=== PATIENT | male | born 1935 | race Caucasian/White ===

== ENCOUNTER 2017-07-01 05:54 | Inpatient (IN) | payer OTHER, BC ==
[2017-06-23 09:52] VITALS: BMI 35.3
[2017-07-01] MEDS ORDERED: CELECOXIB 200 MG CAPSULE PO ONE (06:30)
[2017-07-01] MEDS ORDERED: GABAPENTIN 300 MG CAPSULE (FP) PO ONE (06:30)
[2017-07-01] MEDS ORDERED: TRANEXAMIC ACID 1000 MG/10 ML VIAL IVPUSH ONE (06:30)
[2017-07-01] MEDS ORDERED: CEFAZOLIN 2 GM/D5W 2 GM/50 ML ML IVPB ONE (06:30)
[2017-07-01] MEDS ORDERED: CELECOXIB 200 MG CAPSULE ONE (06:43)
[2017-07-01] MEDS ORDERED: GABAPENTIN 300 MG CAPSULE (FP) ONE (06:43)
[2017-07-01] MEDS ORDERED: ceFAZolin SODIUM 1 GM VIAL ONE ×2 (07:00→08:17)
[2017-07-01] MEDS ORDERED: VANCOMYCIN 1,000 MG VIAL (RESTRICTED TO ID ONLY) ONE (07:00)
[2017-07-01] MEDS ORDERED: BUPIVACAINE LIPOSOME/PF (EXPAREL) 266 MG/20 ML VIAL ONE (07:44)
[2017-07-01] MEDS ORDERED: MIDAZOLAM HCL 2 MG/2 ML SINGLE DOSE VIAL ONE (07:44)
[2017-07-01] MEDS ORDERED: BUPIVACAINE HCL/PF (5 MG/ML) 30 ML VIAL IJ ONE (07:44)
--- NOTE | 2017-07-01 07:49 | HP ---
Satellite [facility] - Chief Complaint Chief Complaint: right knee pain - Past Medical History Allergies/Adverse Reactions: Allergies Allergy/AdvReac Type Severity Reaction Status Date / Time No Known Allergies Allergy Verified 07/01/17 06:31 Cardiovascular: Yes: Other (H/O cardiac catheterisation at [facility] 4 years ago.) Pulmonary: Yes: Asthma (Known to have irregular heart for a long time, but not treated.) Gastrointestinal: Yes: GERD, Peptic Ulcer Disease Endocrine: Yes: Diabetes Mellitus - Current Medications Current Medications: Home Medications Medication Instructions Recorded Losartan Potassium [Cozaar -] 25 mg PO DAILY #30 tablet 06/02/14 Furosemide [Lasix -] 40 mg PO DAILY #30 tablet 06/09/14 Acetaminophen/Diphenhydramine 2 tab PO HS 06/23/17 [Tylenol Pm Ex-Strength Caplet] Ferrous Sulfate [Iron] 325 mg PO DAILY 06/23/17 Omeprazole 40 mg PO HS 06/23/17 Rivaroxaban [Xarelto -] 15 mg PO DAILY 06/23/17 Satellite Physical Exam - Physical Examination Vital Signs: Vital Signs Period Temp Pulse Resp BP Sys/Will Pulse Ox Last 24 Hr 98.4 F 90 18 130/92 General Appearance: Well Nourished, Well Developed, Alert & Oriented x3 ENT: Clear Lung: Normal air movement Heart: Regular rate & rhythm Extremities: Other (right knee- + swelling, + ttp, decr rom, nvi xrays show grade 4 tricompartmental djd) Neurological: Intact, Alert, Oriented Satellite Impression/Plan - Impression/Plan Impression: right knee djd Operative Procedure: right julia tkr Date to be Performed: 07/01/17
[2017-07-01] MEDS ORDERED: PROPOFOL 20 ML ONE ×2 (08:01)
[2017-07-01] MEDS ORDERED: SUCCINYLCHOLINE CHLORIDE 200 MG/10 ML VIAL ONE (08:02)
[2017-07-01] MEDS ORDERED: DEXAMETHASONE SOD PHOSPHATE 4 MG/1 ML VIAL ONE (08:17)
[2017-07-01] MEDS ORDERED: ONDANSETRON 4 MG/2 ML VIAL ONE (08:17)
[2017-07-01] MEDS ORDERED: TRANEXAMIC ACID 1000 MG/10 ML VIAL ONE ×2 (08:17→09:42)
[2017-07-01] MEDS ORDERED: VANCOMYCIN 1,000 MG VIAL (RESTRICTED TO ID ONLY) IVPB ONE (09:40)
[2017-07-01] MEDS ORDERED: ONDANSETRON 4 MG/2 ML VIAL IVPUSH PRN (10:05)
[2017-07-01] MEDS ORDERED: MAG HYDROX/AL HYDROX/SIMETH 30 ML UNIT-DOSE CUP PO PRN (10:05)
[2017-07-01] MEDS ORDERED: MAGNESIUM HYDROX 2400MG/30ML ORAL SUSPENSION 30 ML CUP PO PRN (10:05)
--- NOTE | 2017-07-01 10:08 | OP ---
Operative Note - Note: Operative Date: 07/01/17 (esme) Pre-Operative Diagnosis: right knee djd Operation: right julia tkr Post-Operative Diagnosis: Same as Pre-op Surgeon: Isaac Sebastian Mds Manager: Gasper Gallegos Anesthesiologist/PRESS TENDER: Louise Olsen Anesthesia: Spinal, Local Specimens Removed: bone fragments Estimated Blood Loss (mls): 150 Operative Report Dictated: Yes
[2017-07-01] MEDS ORDERED: LACTATED RINGERS SOLUTION 1,000 ML IV SCH ×2 (10:15→12:41)
[2017-07-01] MEDS: ACETAMINOPHEN 325 MG TABLET (FP) PO SCH ×3 (11:15→23:37)
--- NOTE | 2017-07-01 11:21 | SPEC ---
DATE OF OPERATION: 07/01/2017 PREOPERATIVE DIAGNOSIS: Degenerative joint disease, right knee. POSTOPERATIVE DIAGNOSIS: Degenerative joint disease, right knee. PROCEDURE: Right total knee replacement with robotic-assisted navigation (MAKOplasty). SURGICAL ATTENDING: Isaac Sebastian MD STUDENT SERVICES VICE PRESIDENT: MARTIN Schafer ANESTHESIA: Regional and spinal. CLOSURE: A Triathlon Press-Fit knee system with a 7 PS femur, 8 tibia, 38 patella, and an 11 polyethylene; No. 1 Vicryl, fascia; 0 and 2-0 for subcutaneous; and 3-0 Monocryl subcuticular with skin glue for skin; 4-0 undyed Vicryl for pin sites. ESTIMATED BLOOD LOSS: Less than 100 mL. COMPLICATIONS: None. CONDITION: To recovery room in stable condition. DESCRIPTION OF OPERATIVE PROCEDURE: Patient was taken to the operating room on July 01, 2017. Regional and spinal anesthesia was administered by the anesthesiologist. IV Kefzol was administered prophylactically prior to the case as well as TXA. The right lower extremity was prepped and draped in the usual sterile fashion. The midline 10- to 12-cm longitudinal incision was made. Hemostasis was achieved with Bovie cautery. Sharp dissection was carried down to the extensor mechanism which was perform the procedure. Medial parapatellar arthrotomy was then performed, leaving a cuff of tissue for later closure. The patella was inverted and the knee was flexed up. The fat pad was excised. Subperiosteal dissection was done on the anteromedial proximal tibia until the knee was able to be brought forward. This was facilitated by taking the ACL, PCL and medial and lateral menisci. Checkpoints were placed in both the femur and in the tibia. Two parallel threaded pins were drilled superior to the knee joint through the already made incision from anterior to posterior just going through the anterior cortex but just engaging but not going through the posterior cortex. Two threaded pins were drilled through 2 small stab incisions in parallel fashion 1 handbreadth below the tibial tubercle through the anterior cortex of the tibia and engaging but not going through the posterior cortex. Both sets of pins were attached to navigation arrays for the MICHAEL system. The knee was then registered with the navigation system with center of rotation of the hip, medial and lateral malleoli and multiple sites both on the tibia and on the femur. Confirmation of excellent registration was confirmed by "popping the bubbles." At this time, the knee was thoroughly inspected to remove all osteophytes around the knee. The knee was then tensioned in varus/valgus at both full extension and at 90 degrees of flexion to ascertain our gaps. The virtual position of the components was optimized to ensure equal gaps throughout the range of motion. Once this was performed, the robot was brought into the field, was registered. The bone was cut as per the specifications on both the tibia and on the femur. The box cuts were then made as well. Excellent trial stability was obtained on the femur. The tibial baseplate was allowed to "find itself" and then was clipped into place. Confirmation of excellent external rotation of that component was confirmed by the navigation device as well.The patella was calibered for thickness and cut at the appropriate level. The appropriate lollipop was used to drill 3 holes in the patella and a trial asymmetric patellar button was applied. The knee was taken through a range of motion and found to have excellent stability from full extension to full flexion with excellent tracking of the patella. The trial components were then removed. The lug holes were drilled in the femur. The cementless keel was punched in the tibia. The real Press-Fit components were malleted into place, first with the tibia and then with the femur, and then the patella was crimped into place as well. The real polyethylene liner was then clipped into place. Range of motion, stability and tracking were as described earlier. The knee was thoroughly irrigated with copious amounts of irrigation. Vancomycin powder was placed inside the joint. The medial parapatellar arthrotomy was then closed using No. 1 Vicryl interrupted suture. Post closure of the arthrotomy, the knee was taken through a range of motion and found to have no undue tension on the repair. The subcutaneous was then pulse antibiotic irrigated, closed with 0 and 2-0 Vicryl and 3-0 Monocryl subcuticular with skin glue for the skin. Prior to closure, the checkpoints were removed as were the threaded pins. The tibial pin sites were closed with 4-0 undyed Vicryl. A sterile pressure Aquacel dressing was applied. No tourniquet was used during the case. The total blood loss was approximately 100 mL. No complication. Patient was transferred to recovery in stable condition. Aftab [id number]
[2017-07-01] MEDS: oxyCODONE HCL 5 MG TABLET PO PRN ×2 (14:00→16:57)
[2017-07-01] MEDS: CEFAZOLIN 2 GM/D5W 2 GM/50 ML ML IVPB SCH ×2 (16:00→23:37)
[2017-07-01] MEDS ORDERED: PATIENT'S OWN MEDICATION (NON-FORMULARY) (Omeprazole [Omeprazole] 40 MG) PO SCH (22:00)
[2017-07-01] MEDS: SENNOSIDES/DOCUSATE COMBO (SENNA PLUS) TABLET (UD) PO SCH (22:14)
[2017-07-01] MEDS: PANTOPRAZOLE 40 MG TABLET (FP) PO SCH (22:14)
[2017-07-02] MEDS: oxyCODONE HCL 5 MG TABLET PO PRN ×5 (02:24→23:46)
[2017-07-02] MEDS: ACETAMINOPHEN 325 MG TABLET (FP) PO SCH ×4 (06:12→23:46)
[2017-07-02 08:01] LABS: HEMATOCRIT 31.7 % (35.4-49); HEMOGLOBIN 10.9 GM/dl (11.7-16.9); MCH 32.9 pg (25.7-33.7); MCHC 34.4 g/dl (32.0-35.9); MEAN CELL VOLUME 95.6 fl (80-96); MEAN PLT VOLUME 9.1 fl (7.5-11.1); PLATELET COUNT 229 K/MM3 (134-434); RBC 3.32 M/mm3 (4.00-5.60); RDW 12.8 % (11.9-15.9); WHITE BLOOD COUNT 8.5 K/mm3 (4.0-10.8)
[2017-07-02] MEDS: MULTIVITAMINS (DAILY MVI) TABLET (FP) PO SCH (09:26)
[2017-07-02] MEDS: FUROSEMIDE 40 MG TABLET (FP) PO SCH (09:26)
[2017-07-02] MEDS: LOSARTAN POTASSIUM 25 MG TABLET PO SCH (09:27)
[2017-07-02] MEDS: FERROUS SO4 325 MG TABLET (FP) PO SCH (09:27)
[2017-07-02] MEDS: SENNOSIDES/DOCUSATE COMBO (SENNA PLUS) TABLET (UD) PO SCH ×2 (09:27→21:06)
[2017-07-02] MEDS: RIVAROXABAN 15 MG TABLET PO SCH (09:27)
[2017-07-02] MEDS: PANTOPRAZOLE 40 MG TABLET (FP) PO SCH (21:06)
[2017-07-03] MEDS: ACETAMINOPHEN 325 MG TABLET (FP) PO SCH ×3 (06:28→18:39)
[2017-07-03] MEDS: oxyCODONE HCL 5 MG TABLET PO PRN ×2 (06:29→18:39)
[2017-07-03 09:09] LABS: HEMATOCRIT 32.8 % (35.4-49); HEMOGLOBIN 10.9 GM/dl (11.7-16.9); MCH 31.5 pg (25.7-33.7); MCHC 33.3 g/dl (32.0-35.9); MEAN CELL VOLUME 94.5 fl (80-96); MEAN PLT VOLUME 9.7 fl (7.5-11.1); PLATELET COUNT 245 K/MM3 (134-434); RBC 3.47 M/mm3 (4.00-5.60); WHITE BLOOD COUNT 11.6 K/mm3 (4.0-10.8)
[2017-07-03] MEDS: MULTIVITAMINS (DAILY MVI) TABLET (FP) PO SCH (09:37)
[2017-07-03] MEDS: FERROUS SO4 325 MG TABLET (FP) PO SCH (09:37)
[2017-07-03] MEDS: SENNOSIDES/DOCUSATE COMBO (SENNA PLUS) TABLET (UD) PO SCH ×2 (09:37→21:22)
[2017-07-03] MEDS: FUROSEMIDE 40 MG TABLET (FP) PO SCH (09:37)
[2017-07-03] MEDS: LOSARTAN POTASSIUM 25 MG TABLET PO SCH (09:37)
[2017-07-03] MEDS: RIVAROXABAN 15 MG TABLET PO SCH (09:37)
[2017-07-03] MEDS ORDERED: INVOKANA 100 MG PO SCH (10:00)
--- NOTE | 2017-07-03 10:23 | PN ---
Progress Note (short form) - Note Progress Note: AVSS COMFORTABLE BANDAGES DRY AND INTACT CALF SOFT AND NT NVI ROM 060 + STRAIGHT LEG RAISE ABILITY IMP: DOING WELL PLAN: PT, TRANSFER TO SNF TOMORROW
[2017-07-03] MEDS: PANTOPRAZOLE 40 MG TABLET (FP) PO SCH (21:22)
[2017-07-04] MEDS: ACETAMINOPHEN 325 MG TABLET (FP) PO SCH ×2 (00:21→06:02)
[2017-07-04] MEDS: oxyCODONE HCL 5 MG TABLET PO PRN (06:02)
[2017-07-04 06:23] VITALS: BP 124/44; PULSE 91; TEMP 99.3
--- NOTE | 2017-07-04 09:09 | PN ---
Progress Note (short form) - Note Progress Note: Ortho Pt see and examined s/p right julia tkr pod #3 Selected Entries 07/04/17 06:21 Temperature 99.3 F Pulse Rate 91 H Respiratory 18 Rate Blood Pressure 124/44 Laboratory Tests 07/03/17 06:00 WBC 11.6 H D Hgb 10.9 L Hct 32.8 L Plt Count 245 dressing c/d/i, calf soft, nt rom 0-60, nvi a/p PT dvt ppx pain control d/c to rehab today f/u in 1-2 weeks
--- NOTE | 2017-07-04 09:10 | DS ---
Physical Examination Vital Signs: Vital Signs Temperature 99.3 F 07/04/17 06:21 Pulse Rate 91 H 07/04/17 06:21 Respiratory Rate 18 07/04/17 06:21 Blood Pressure 124/44 07/04/17 06:21 O2 Sat by Pulse Oximetry (%) 97 07/04/17 06:21 Labs: CBC, BMP 07/03/17 06:00 Discharge Summary Reason For Visit: OSTEOARTHRITIS Procedures: Principal: s/p right tkr Hospital Course: admitted for elective right julia tkr, uneventful post-op, stable for d/c Condition: Good - Instructions Diet, Activity, Other Instructions: Post-op Instructions-Total Knee Replacement Call the office for a follow-up appointment in 1 week - [phone] Aspirin 325mg daily for 6 weeks. Pain medication was sent into your pharmacy. Apply Graduated Compression Stockings (TEDs) to both lower extremities- remove daily for hygiene ONLY Apply Sequential Compression Device (SCDs) to both Lower extremities remove for PT and hygiene ONLY Apply cold packs to affected area for 15 minutes every 2 hours. Physical Therapist will come to your home for the first 5 days. You will be set up with outpatient PT at your first post-operative visit. Patient may ambulate as tolerated-encourage self care (at least every 2-3 hours while awake) with walker or cane Maintain Aquacel (waterproof) dressing to operative wound (will be removed by surgeon at first office visit) Shower with Aquacel dressing in place-if Aquacel integrity compromised, remove and apply dry sterile dressing and notify Orthopedist. DO NOT SHOWER unless Orthopedists approves without Aquacel dressing CONTACT THE OFFICE FOR ANY CHANGE IN YOUR CONDITION (for example-fever greater than 102 degrees, excessive bleeding from operative site, purulent drainage, severe swelling or pain) GO TO THE EMERGENCY ROOM IF THERE IS A MEDICAL EMERGENCY Knee Precautions: * Keep a rolled towel under affected heel while in bed or chair (to keep knee in extension) * Keep affected leg elevated except during mealtimes * DO NOT PLACE PILLOW UNDER AFFECTED KNEE * If you have any questions, please do not hesitate to call the office - . Referrals: Isaac Sebastian MD [Staff Physician] - Disposition: [facility] - Home Medications Comprehensive Discharge Medication List: Ambulatory Orders Losartan Potassium [Cozaar -] 25 mg PO DAILY #30 tablet 06/02/14 Furosemide [Lasix -] 40 mg PO DAILY #30 tablet 06/09/14 Acetaminophen/Diphenhydramine [Tylenol Pm Ex-Strength Caplet] 2 tab PO HS Ferrous Sulfate [Iron] 325 mg PO DAILY 06/23/17 Omeprazole 40 mg PO HS 06/23/17 Rivaroxaban [Xarelto -] 15 mg PO DAILY 06/23/17 Oxycodone HCl/Acetaminophen [Percocet 5-325 mg Tablet] 1 - 2 tab PO Q6H #50 tab MDD 8 07/01/17
[2017-07-04] MEDS: LOSARTAN POTASSIUM 25 MG TABLET PO SCH (09:28)
[2017-07-04] MEDS: FERROUS SO4 325 MG TABLET (FP) PO SCH (09:28)
[2017-07-04] MEDS: FUROSEMIDE 40 MG TABLET (FP) PO SCH (09:29)
[2017-07-04] MEDS: RIVAROXABAN 15 MG TABLET PO SCH (09:29)
[2017-07-04] MEDS: SENNOSIDES/DOCUSATE COMBO (SENNA PLUS) TABLET (UD) PO SCH (09:29)
[2017-07-04] MEDS: MULTIVITAMINS (DAILY MVI) TABLET (FP) PO SCH (09:29)
--- NOTE | 2017-07-05 15:34 | PATH ---
Surgical Pathology Report Patient Name: DARIELA HOWE Med. Rec. #: [id number] /Age/Gender: 1935 (Age: 81) / M Account: [id number] Location: [facility] Taken: 07/01/2017 Received: 07/01/2017 Reported: 07/05/2017 Physicians: Isaac Sebastian M.D. Specimen(s) Received RIGHT KNEE BONES Clinical History Osteoarthritis right knee Final Diagnosis BONE AND SOFT TISSUE, RIGHT KNEE, REPLACEMENT: DEGENERATIVE JOINT DISEASE. Electronically Signed Adrian Pinto M.D. Gross Description Received in formalin labeled "right knee bones," is a 15.5 x 11.5 x 2.3 cm aggregate of multiple irregular portions of bone and soft tissue. The tibial plateau measures 9.0 x 6.5 x 2.0 cm. There multiple areas of eburnation present, measuring up to 2.7 cm in greatest dimension. The remaining articular surfaces are contreras-yellow and diffusely granular. The underlying trabecular bone is yellow and hard. Civil Lawyer sections are submitted in one cassette, following decalcification. 07/04/2017 saudi07/04/2017
== END 2017-07-04 13:50 | DRG 470 ==
LOC: FM/S 05:54
PROVIDERS: ADMIT Orthopaedic Surgery; ATTEND Orthopaedic Surgery
PROC: 8E0Y0CZ Robotic Assisted Procedure of Lower Extremity, Open Approach (ICD-10-PCS; 2017-07-01)
PROC: 0SRC0JA Replacement of Right Knee Joint with Synthetic Substitute, Uncemented, Open Approach (ICD-10-PCS; principal; 2017-07-01 08:00)
DX: M17.11 Unilateral primary osteoarthritis, right knee (principal); J45.909 Unspecified asthma, uncomplicated; K21.9 Gastro-esophageal reflux disease without esophagitis; Z87.11 Personal history of peptic ulcer disease; E11.9 Type 2 diabetes mellitus without complications
CPT/HCPCS: 36415; 73560-TC-RT-FY; 82962; 85027; 88304-TC; 88311-TC; 94010; 94760; 97116-GP; 97162-GP

== ENCOUNTER 2018-08-25 22:29 | Inpatient (IN) | payer OTHER, BC ==
--- NOTE | 2018-08-25 23:14 | PDOC ---
History of Present Illness - General Chief Complaint: Shortness of Breath Stated Complaint: RT ARM NUMBNESS Time Seen by Provider: 08/25/18 22:46 History Source: Patient Exam Limitations: No Limitations - History of Present Illness Initial Comments: 08/25/18 23:14 HPI 82 YOM with h/o Afib on Eliquis, HTN, DM2, GERD, osteoarthritis presenting with right arm burning pain x 1.5 hours, with tingling sensation, after eating [employer] tonight. Denies fall or trauma, but was using his RUE for his cane to assist with ambulation. Denies exacerbation with movement, not associated with cp/sob/reyes/dizziness/syncope. 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 Denies fever, chills, chest pain, SOB, palpitation, syncope, headache, dizziness , weakness, N, V, D, abdominal pain, bladder and bowel problems, leg swelling, leg pain No new changes in medications. No suspicious food intake, but did eat [employer] hamburger tonight. Allergies: None Past Medical History: as documented in EMR/HPI Social history: Lives with family. No tobacco, ETOH or drug use. Surgical history: cholecystectomy, TKA Meds: as documented in EMR PMD: Dr Benitez Past History - Past Medical History Allergies/Adverse Reactions: Allergies Allergy/AdvReac Type Severity Reaction Status Date / Time No Known Allergies Allergy Verified 08/25/18 22:43 Home Medications: Ambulatory Orders Losartan Potassium [Cozaar -] 25 mg PO DAILY #30 tablet 06/02/14 Furosemide [Lasix -] 40 mg PO DAILY #30 tablet 06/09/14 Acetaminophen/Diphenhydramine [Tylenol Pm Ex-Strength Caplet] 2 tab PO HS Ferrous Sulfate [Iron] 325 mg PO DAILY 06/23/17 Omeprazole 40 mg PO HS 06/23/17 Rivaroxaban [Xarelto] 15 mg PO DAILY 06/23/17 Oxycodone HCl/Acetaminophen [Percocet 5-325 mg Tablet] 1 - 2 tab PO Q6H #50 tab MDD 8 07/01/17 Anemia: No Asthma: No Cancer: No Cardiac Disorders: Yes (A- FIB- ON XARELTO TOLD TO STOP 06/27/17) CVA: No COPD: No CHF: No Dementia: No Diabetes: Yes GI Disorders: Yes (REFLUX) Disorders: No HTN: Yes Hypercholesterolemia: No Liver Disease: No Seizures: No Thyroid Disease: No - Surgical History Abdominal Surgery: No Appendectomy: No Cardiac Surgery: Yes (CARDIC CATH-2013- NEGATIVE) Cholecystectomy: Yes (LAP CHOLEY- 2015) Lung Surgery: No Neurologic Surgery: No Orthopedic Surgery: Yes (FX REPAIR LEFT LEG- 1984) - Suicide/Smoking/Psychosocial Hx Smoking History: Never smoked Have you smoked in the past 12 months: No If you are a former smoker, when did you quit?: 1992 Hx Alcohol Use: No Drug/Substance Use Hx: No Substance Use Type: None Hx Substance Use Treatment: No Review of Systems - Review of Systems Able to Perform ROS?: Yes Comments:: 08/25/18 23:14 Review of systems Constitutional: no fevers or chills. HEENT: no headache or dizziness. No visual/hearing disturbances. No blindness or blurry vision. CVS: no cp or syncope. No palpitations. Resp: no sob. No cough. Gastrointestinal: no abdominal pain, nausea or vomiting. Genitourinary: no urinary sx, hematuria. MUSCULOSKELETAL: No joint pain and swelling. No neck or back pain. SKIN: no redness or skin changes, no discharge, no rash. No wounds. Hematologic: no easy bruising/bleeding. NEUROLOGIC: No headache, dizziness, LOC or altered mental status. +arm weakness and tingling. Allergic/Immunologic: no allergies All other systems reviewed and negative, or as documented in HPI. *Physical Exam - Vital Signs Last Vital Signs Temp Pulse Resp BP Pulse Ox 98.2 F 63 20 181/72 H 94 L 08/25/18 22:35 08/25/18 22:35 08/25/18 22:35 08/25/18 22:35 08/25/18 22:35 - Physical Exam Comments: 08/25/18 23:14 Physical exam: General: Well appearing, awake and alert, NAD. HEENT: NCAT, PERRL, EOMI, clear conjunctiva, anicteric, moist mucus membranes, clear oropharynx, no oral lesions.. Neck: neck supple, FROM Resp: CTAB, normal and even respirations, no respiratory distress CVS: RRR, no murmurs, 2+ peripheral pulses throughout, +peripheral edema at sock line Abdomen: soft, NTND, no peritoneal signs. Back: nontender, normal inspection and ROM MSK: CARSON x4, ROM intact. No clubbing or cyanosis. normal bulk and tone. shoulder abduction/adduction/flexion/extension and prox strength 5/5 actively against resistance. 5/5 shoulder shrug strength. deltoid sensation intact; sensation grossly intact in median/radial/ulnar distribution. distal keg header strength 5/5. 2+ radialis pulses bilaterally and symmetric. Neg Phalens and Tinels testing, no carpal tunnel tenderness elicited. Extrem: no calf tenderness. Neuro: alert, no focal neuro deficits. Skin: warm and well perfused, cap refill <2 sec, normal color Heart Score/ECG Review #1 ECG reviewed & interpreted by me at: 22:30 Compared to previous ECG there are: No significant change 08/25/18 23:17 EKG atrial fibrillation at 54 bpm , wide QRS, incomplete RBBB, ST and T wave segments and morphology normal. Nonspecific T wave abnormalities with WTI in I/ AVL - similar to prior EKG ED Treatment Course - LABORATORY CBC & Chemistry Diagram: 08/25/18 23:28 08/25/18 23:28 - RADIOLOGY Radiology Studies Ordered: Category Date Time Status CHEST X-RAY PORTABLE* [RAD] Stat Radiology 08/25/18 22:46 Ordered Medical Decision Making - Medical Decision Making 08/25/18 23:14 See HPI for details. Prior notes reviewed, including admissions, discharges and consultations. Vital signs reviewed, wnl. mildly hypertensive, but also in pain. SpO2 normalized, no respiratory distress DDX neuropathy, carpel tunnel syndrome, ACS, arrhythmia, NSTEMI, electrolyte/ metabolic derangements. laboratory results and imaging reviewed, basic labs and lytes wnl, Cr elevated to 1.7 compared to prior. CXR_clear lungs, normal silhouette Cardiac panel_trop elevated, 0.17. chucky with NSTEMI. BNP indeterminate/ unremarkable EKG atrial fibrillation at 54 bpm , wide QRS, incomplete RBBB, ST and T wave segments and morphology normal. Nonspecific T wave abnormalities with WTI in I/ AVL - similar to prior EKG ED course -interventions: ibuprofen/initial neuropathic pain, ASA for NSTEMI - routine cards cs placed for Dr Figueredo per request Admit to Dr Gerard service for NSTEMI, atypical cp symptoms given +trop/baseline abnormal EKG. Discussed results and management plan with pt and family member at bedside, agree with impression, treatment indications, recommendations and plan. 08/26/18 01:15 *DC/Admit/Observation/Transfer Diagnosis at time of Disposition: NSTEMI (non-ST elevated myocardial infarction), Atypical chest pain - Discharge Dispostion Condition at time of disposition: Guarded Decision to Admit order: Yes Decision to Admit order Date/Time: 08/26/18 01:11 Decision to Admit Order Category Date Time Status Decision to Admit to Hospital Routine Admission 08/26/18 01:03 Active - Referrals - Patient Instructions - Post Discharge Activity
[2018-08-25] MEDS ORDERED: IBUPROFEN 600 MG TABLET (FP) PO ONE ×2 (23:15→23:22)
[2018-08-25 23:53] LABS: BASO % 0.8 % (0-2.0); EOS % 2.1 % (0-4.5); HEMATOCRIT 37.7 % (35.4-49); HEMOGLOBIN 12.1 GM/dL (11.7-16.9); MCH 30.9 pg (25.7-33.7); MEAN CELL VOLUME 96.5 fl (80-96); MEAN PLT VOLUME 9.9 fl (7.5-11.1); MONO % 7.8 % (3.8-10.2); NEUT % 77.3 % (42.8-82.8); RBC 3.91 M/mm3 (4.00-5.60); RDW 15.1 % (11.9-15.9); WHITE BLOOD COUNT 4.7 K/mm3 (4.0-10.0)
[2018-08-26 00:05] LABS: INR 1.13 (0.83-1.09); PROTHROMBIN TIME (PATIENT) 13.4 SEC (9.7-13.0)
[2018-08-26 00:08] LABS: ACTIVATED PTT 33.7 SECONDS (25.2-36.5)
[2018-08-26 00:18] LABS: ALBUMIN 3.8 g/dl (3.4-5.0); BILIRUBIN,TOTAL 0.4 mg/dL (0.2-1); BLOOD UREA NITROGEN 32.9 mg/dL (7-18); CALCIUM 8.8 mg/dL (8.5-10.1); CREATININE 1.7 mg/dL (0.55-1.3); MAGNESIUM 3.1 mg/dL (1.8-2.4); N-TERMINAL BNP 966.4 pg/ml (5-450); POTASSIUM 5.3 mmol/L (3.5-5.1); TOT PROT 7.4 g/dl (6.4-8.2)
[2018-08-26] MEDS ORDERED: ASPIRIN 81 MG CHEWABLE TABLETS PO ONE (01:03)
[2018-08-26] MEDS ORDERED: ASPIRIN 81 MG CHEWABLE TABLETS ONE (01:14)
[2018-08-26 01:19] LABS: PLATELET COUNT 164 K/MM3 (134-434); PLATELET ESTIMATE ADEQUATE
[2018-08-26 06:37] VITALS: BMI 33.5
[2018-08-26 07:42] LABS: BASO % 1.2 % (0-2.0); EOS % 0.5 % (0-4.5); HEMATOCRIT 38.5 % (35.4-49); HEMOGLOBIN 12.5 GM/dL (11.7-16.9); LYMPH % 13.6 % (8-40); MCH 30.8 pg (25.7-33.7); MCHC 32.4 g/dl (32.0-35.9); MEAN CELL VOLUME 95.3 fl (80-96); MEAN PLT VOLUME 9.8 fl (7.5-11.1); MONO % 7.3 % (3.8-10.2); NEUT % 77.4 % (42.8-82.8); PLATELET COUNT 179 K/MM3 (134-434); RBC 4.04 M/mm3 (4.00-5.60); RDW 14.5 % (11.9-15.9); WHITE BLOOD COUNT 4.8 K/mm3 (4.0-10.0)
[2018-08-26 08:21] LABS: BILIRUBIN,TOTAL 0.7 mg/dL (0.2-1); BLOOD UREA NITROGEN 30.5 mg/dL (7-18); CALCIUM 8.8 mg/dL (8.5-10.1); CREATININE 1.4 mg/dL (0.55-1.3); TOT PROT 7.6 g/dl (6.4-8.2)
--- NOTE | 2018-08-26 09:49 | EKG ---
Test Reason : Blood Pressure : / mmHG Vent. Rate : 054 BPM Atrial Rate : 048 BPM P-R Int : 000 ms QRS Dur : 124 ms QT Int : 434 ms P-R-T Axes : 000 -65 097 degrees QTc Int : 411 ms WIDE QRS RHYTHM LEFT AXIS DEVIATION RIGHT BUNDLE BRANCH BLOCK SEPTAL INFARCT , AGE UNDETERMINED T WAVE ABNORMALITY, CONSIDER LATERAL ISCHEMIA ABNORMAL ECG WHEN COMPARED WITH ECG OF 27-MAY-2014 08:34, WIDE QRS RHYTHM HAS REPLACED ATRIAL FIBRILLATION Confirmed by VERA GODINEZ MD ([id number]) on 08/26/2018 9:49:29 AM Referred By: Confirmed By:VERA GODINEZ MD
[2018-08-26] MEDS: ASPIRIN COATED 81 MG TABLET.EC PO SCH (10:11)
[2018-08-26] MEDS: LOSARTAN POTASSIUM 25 MG TABLET PO SCH (10:11)
[2018-08-26] MEDS: PANTOPRAZOLE 40 MG TABLET (FP) PO SCH (10:11)
[2018-08-26] MEDS: FUROSEMIDE 40 MG TABLET (FP) PO SCH (10:11)
[2018-08-26] MEDS: FERROUS SO4 325 MG TABLET (FP) PO SCH (10:11)
--- NOTE | 2018-08-26 11:51 | CON.CARD ---
Cardiology Consult (text) - Consultation Consultation Note: cc: right arm burning/tingling with weakness in right arm hpi: 82 m hx chronic afib, htn, dm, here with right arm burning/tingling with weakness in right arm. Yesterday evening ate dinner and afterwards noticed burning/tingling/weakness in right arm. No radiation to chest. No cp sob palps dizzy loc pnd orthopnea le edema. Arm symptoms worse with movement of hand and elbow. Sees dr caballero for cardio. pmh: per hpi psh: cholecystectomy social: no tob fam: no premature cad, scd ros: per hpi; all others normal meds: Home Medications Medication Instructions Recorded Losartan Potassium [Cozaar -] 25 mg PO DAILY #30 tablet 06/02/14 Furosemide [Lasix -] 40 mg PO DAILY #30 tablet 06/09/14 Acetaminophen/Diphenhydramine 2 tab PO HS 06/23/17 [Tylenol Pm Ex-Strength Caplet] Ferrous Sulfate [Iron] 325 mg PO DAILY 06/23/17 Omeprazole 40 mg PO HS 06/23/17 Rivaroxaban [Xarelto] 15 mg PO DAILY 06/23/17 Oxycodone HCl/Acetaminophen 1 - 2 tab PO Q6H #50 tab MDD 8 07/01/17 [Percocet 5-325 mg Tablet] Vital Signs Period Temp Pulse Resp BP Sys/Will Pulse Ox Last 24 Hr 97.4 F-98.6 F 40-92 13-20 128-181/56-98 94-98 nad no jvd irreg s1s2 no mrg cta bl nl eff aaox3 no le e/c/c abd nt nd pos bs no jaundice diaphoresis pos dp pt no carotid bruits Laboratory Last Values WBC 4.8 K/mm3 (4.0-10.0) 08/26/18 06:32 RBC 4.04 M/mm3 (4.00-5.60) 08/26/18 06:32 Hgb 12.5 GM/dL (11.7-16.9) 08/26/18 06:32 Hct 38.5 % (35.4-49) 08/26/18 06:32 MCV 95.3 fl (80-96) 08/26/18 06:32 MCH 30.8 pg (25.7-33.7) 08/26/18 06:32 MCHC 32.4 g/dl (32.0-35.9) 08/26/18 06:32 RDW 14.5 % (11.9-15.9) 08/26/18 06:32 Plt Count 164 K/MM3 (134-434) D 08/25/18 23:28 MPV 9.8 fl (7.5-11.1) 08/26/18 06:32 Absolute Neuts (auto) 3.7 K/mm3 (1.5-8.0) 08/26/18 06:32 Neutrophils % 77.4 % (42.8-82.8) 08/26/18 06:32 Lymphocytes % 13.6 % (8-40) 08/26/18 06:32 Monocytes % 7.3 % (3.8-10.2) 08/26/18 06:32 Eosinophils % 0.5 % (0-4.5) 08/26/18 06:32 Basophils % 1.2 % (0-2.0) 08/26/18 06:32 Nucleated RBC % 0 % (0-0) 08/26/18 06:32 Platelet Estimate Adequate 08/25/18 23:28 Platelet Comment Large platelets 08/25/18 23:28 PT with INR 13.40 SEC (9.7-13.0) H 08/25/18 23:28 INR 1.13 (0.83-1.09) H 08/25/18 23:28 PTT (Actin FS) 33.7 SECONDS (25.2-36.5) 08/25/18 23:28 Sodium 143 mmol/L (136-145) 08/26/18 06:32 Potassium 5.0 mmol/L (3.5-5.1) 08/26/18 06:32 Chloride 108 mmol/L (98-107) H 08/26/18 06:32 Carbon Dioxide 25 mmol/L (21-32) 08/26/18 06:32 Anion Gap 9 MMOL/L (8-16) 08/26/18 06:32 BUN 30.5 mg/dL (7-18) H 08/26/18 06:32 Creatinine 1.4 mg/dL (0.55-1.3) H 08/26/18 06:32 Est GFR (CKD-EPI)AfAm 54.22 08/26/18 06:32 Est GFR (CKD-EPI)NonAf 46.79 08/26/18 06:32 POC Glucometer 130 UNITS (80-120) 08/26/18 11:09 Random Glucose 126 mg/dL (74-106) H 08/26/18 06:32 Calcium 8.8 mg/dL (8.5-10.1) 08/26/18 06:32 Magnesium 3.1 mg/dL (1.8-2.4) H 08/25/18 23:28 Total Bilirubin 0.7 mg/dL (0.2-1) 08/26/18 06:32 AST 27 U/L (15-37) 08/26/18 06:32 ALT 40 U/L (13-61) 08/26/18 06:32 Alkaline Phosphatase 111 U/L (45-117) 08/26/18 06:32 Creatine Kinase 367 U/L (26-308) H 08/26/18 02:30 Creatine Kinase Index 1.1 % (0.0-5.0) 08/26/18 02:30 CK-MB (CK-2) 4.4 ng/mL (0.5-3.6) H 08/26/18 02:30 Troponin I 0.13 ng/ml (0.00-0.05) H 08/26/18 10:25 B-Natriuretic Peptide 966.4 pg/ml (5-450) H 08/25/18 23:28 Total Protein 7.6 g/dl (6.4-8.2) 08/26/18 06:32 Albumin 4.0 g/dl (3.4-5.0) 08/26/18 06:32 Triglycerides 48 mg/dL (0-150) 08/26/18 06:32 Cholesterol 143 mg/dL (50-200) 08/26/18 06:32 Total LDL Cholesterol 62 mg/dL (5-100) 08/26/18 06:32 HDL Cholesterol 79 mg/dL (40-60) H 08/26/18 06:32 echo 05/2014: nl lv/rv, lae, mod mr, mod tr, mild-mod pr, rvsp 50-60 cxr: clear lungs ecg: afib, rate 54, old rbbb, no sig change priors tele: afib, rate controlled a/p: 82 m hx chronic afib, htn, dm, here with right arm burning/tingling with weakness in right arm. right arm burning/tingling with weakness in right arm: -seems MSK, neuropathy related. Does not seem cardiac related. -no signs acs. trop borderline range with flat trendx3 and nl ck index, not c/ w acs. ECG similar to priors. chronic afib: -rate controlled w/o meds -cont xarelto htn: -cont arb mehreen: -improved today
[2018-08-26 13:04] LABS: URINE APPEARANCE CLEAR; URINE BILIRUBIN NEGATIVE (NEGATIVE); URINE COLOR YELLOW; URINE GLUCOSE (UA) 1+ (NEGATIVE); URINE KETONE NEGATIVE (NEGATIVE); URINE LEUK ESTERASE NEGATIVE (NEGATIVE); URINE NITRITE NEGATIVE (NEGATIVE); URINE PROTEIN NEGATIVE (NEGATIVE); URINE UROBILINOGEN 0.2 mg/dL (0.2-1.0)
[2018-08-26] MEDS: RIVAROXABAN 15 MG TABLET PO SCH (17:17)
--- NOTE | 2018-08-26 23:14 | HP ---
Admitting History and Physical - Admission History of Present Illness: right arm burning/tingling with weakness in right arm 82 m hx chronic afib, htn, dm, here with right arm burning/tingling with weakness in right arm. Yesterday evening ate dinner jen do and shortly afterwards noticed burning/tingling/weakness in right arm. No radiation to chest. No cp / sob palps /or diaphoresis. Patinetnotofiedhis son who brought him to the ER. Arm symptoms worse with movement of hand and elbow. Sees dr caballero for cardio. History Source: Patient, Medical Record Limitations to Obtaining History: No Limitations - Past Medical History Cardiovascular: Yes: AFIB, HTN, Other (H/O cardiac catheterisation at [facility] 4 years ago.) Pulmonary: Yes: Asthma (Known to have irregular heart for a long time, but not treated.) Gastrointestinal: Yes: GERD, Peptic Ulcer Disease Endocrine: Yes: Diabetes Mellitus - Smoking History Smoking history: Never smoked Have you smoked in the past 12 months: No If you are a former smoker, when did you quit?: 1992 - Alcohol/Substance Use Hx Alcohol Use: No History of Substance Use: reports: None - Social History Usual Living Arrangement: Yes: Alone ADL: Independent History of Recent Travel: No Home Medications - Allergies Allergies/Adverse Reactions: Allergies Allergy/AdvReac Type Severity Reaction Status Date / Time No Known Allergies Allergy Verified 08/25/18 22:43 - Home Medications Home Medications: Ambulatory Orders Losartan Potassium [Cozaar -] 25 mg PO DAILY #30 tablet 06/02/14 Furosemide [Lasix -] 40 mg PO DAILY #30 tablet 06/09/14 Acetaminophen/Diphenhydramine [Tylenol Pm Ex-Strength Caplet] 2 tab PO HS Ferrous Sulfate [Iron] 325 mg PO DAILY 06/23/17 Omeprazole 40 mg PO HS 06/23/17 Rivaroxaban [Xarelto] 15 mg PO DAILY 06/23/17 Oxycodone HCl/Acetaminophen [Percocet 5-325 mg Tablet] 1 - 2 tab PO Q6H #50 tab MDD 8 07/01/17 Review of Systems - Review of Systems Constitutional: reports: No Symptoms Eyes: reports: No Symptoms HENT: reports: No Symptoms Neck: reports: No Symptoms Cardiovascular: reports: No Symptoms Respiratory: reports: No Symptoms Gastrointestinal: reports: No Symptoms Genitourinary: reports: No Symptoms Breasts: reports: No Symptoms Reported Musculoskeletal: reports: No Symptoms Integumentary: reports: No Symptoms Neurological: reports: No Symptoms Endocrine: reports: No Symptoms Hematology/Lymphatic: reports: No Symptoms Psychiatric: reports: No Symptoms Physical Examination Vital Signs: Vital Signs Temperature 98.2 F 08/26/18 17:00 Pulse Rate 75 08/26/18 17:00 Respiratory Rate 20 08/26/18 17:00 Blood Pressure 146/71 08/26/18 17:00 O2 Sat by Pulse Oximetry (%) 95 08/26/18 09:00 Constitutional: Yes: Well Nourished, No Distress, Calm Eyes: Yes: WNL, Conjunctiva Clear HENT: Yes: WNL, Atraumatic, Normocephalic Neck: Yes: WNL, Supple, Trachea Midline Cardiovascular: Yes: WNL, Regular Rate and Rhythm Respiratory: Yes: Regular, CTA Bilaterally Gastrointestinal: Yes: WNL, Normal Bowel Sounds ...Rectal Exam: Yes: Deferred Renal/: Yes: WNL Breast(s): Yes: WNL Musculoskeletal: Yes: WNL Extremities: Yes: WNL Edema: No Peripheral Pulses WNL: Yes Integumentary: Yes: WNL Neurological: Yes: WNL, Alert, Oriented ...Motor Strength: WNL Psychiatric: Yes: WNL, Alert, Oriented Labs: CBC, BMP 08/26/18 06:32 08/26/18 06:32 Problem List - Problems (1) Atypical chest pain Code(s): R07.89 - OTHER CHEST PAIN (2) Atrial fibrillation Code(s): I48.91 - UNSPECIFIED ATRIAL FIBRILLATION (3) Diabetes Code(s): E11.9 - TYPE 2 DIABETES MELLITUS WITHOUT COMPLICATIONS (4) Nausea Code(s): R11.0 - NAUSEA
[2018-08-27 07:28] LABS: BASO % 0.7 % (0-2.0); EOS % 2.6 % (0-4.5); HEMATOCRIT 39.8 % (35.4-49); HEMOGLOBIN 13.1 GM/dL (11.7-16.9); LYMPH % 28.3 % (8-40); MCH 31.5 pg (25.7-33.7); MCHC 32.8 g/dl (32.0-35.9); MEAN CELL VOLUME 95.9 fl (80-96); MEAN PLT VOLUME 9.9 fl (7.5-11.1); MONO % 9.1 % (3.8-10.2); NEUT % 59.3 % (42.8-82.8); RBC 4.15 M/mm3 (4.00-5.60); RDW 14.6 % (11.9-15.9); WHITE BLOOD COUNT 4.4 K/mm3 (4.0-10.0)
[2018-08-27 07:50] LABS: ALBUMIN 3.9 g/dl (3.4-5.0); BILIRUBIN,TOTAL 0.6 mg/dL (0.2-1); CALCIUM 8.6 mg/dL (8.5-10.1); CREATININE 1.4 mg/dL (0.55-1.3); POTASSIUM 4.4 mmol/L (3.5-5.1); TOT PROT 7.6 g/dl (6.4-8.2)
[2018-08-27] MEDS: PANTOPRAZOLE 40 MG TABLET (FP) PO SCH (10:11)
[2018-08-27] MEDS: LOSARTAN POTASSIUM 25 MG TABLET PO SCH (10:11)
[2018-08-27] MEDS: ASPIRIN COATED 81 MG TABLET.EC PO SCH (10:11)
[2018-08-27] MEDS: FERROUS SO4 325 MG TABLET (FP) PO SCH (10:11)
[2018-08-27] MEDS: FUROSEMIDE 40 MG TABLET (FP) PO SCH (10:11)
--- NOTE | 2018-08-27 10:49 | PN ---
Progress Note (short form) - Note Progress Note: s: no cp sob palps dizzy; arm feels better o: Vital Signs Period Temp Pulse Resp BP Sys/Will Pulse Ox Last 24 Hr 97.8 F-98.4 F 43-75 18-20 118-146/48-71 96-97 nad no jvd irreg s1s2 no mrg cta bl nl eff aaox3 no le e/c/c abd nt nd pos bs no jaundice diaphoresis Current Medications Generic Name Dose Route Start Last Admin Trade Name Freq PRN Reason Stop Dose Admin Aspirin 81 mg 08/26/18 10:00 08/27/18 10:11 Ecotrin - PO 81 mg DAILY EUNICE Administration Ferrous Sulfate 325 mg 08/26/18 10:00 08/27/18 10:11 Feosol - PO 325 mg DAILY EUNICE Administration Furosemide 40 mg 08/26/18 10:00 08/27/18 10:11 Lasix - PO 40 mg DAILY EUNICE Administration Losartan Potassium 25 mg 08/26/18 10:00 08/27/18 10:11 Cozaar - PO 25 mg DAILY EUNICE Administration Pantoprazole Sodium 40 mg 08/26/18 10:00 08/27/18 10:11 Protonix - PO 40 mg DAILY EUNICE Administration Rivaroxaban 15 mg 08/26/18 18:00 08/26/18 17:17 Xarelto PO 15 mg DAILY@1800 EUNICE Administration CBC, BMP 08/27/18 06:11 08/27/18 06:11 echo 05/2014: nl lv/rv, lae, mod mr, mod tr, mild-mod pr, rvsp 50-60 cxr: clear lungs ecg: afib, rate 54, old rbbb, no sig change priors tele: afib, rate controlled a/p: 82 m hx chronic afib, htn, dm, here with right arm burning/tingling with weakness in right arm. right arm burning/tingling with weakness in right arm: -seems MSK, neuropathy related. Does not seem cardiac related. -no signs acs. trop borderline range with flat trend and nl ck index, not c/w acs. ECG similar to priors. chronic afib: -rate controlled w/o meds -cont xarelto htn: -cont arb mehreen: -improved today cardiac shaw stable, dc tele
[2018-08-27] MEDS ORDERED: MAGNESIUM CITRATE 300 ML BOTTLE PO ONE (11:45)
[2018-08-27 12:40] LABS: PLATELET COUNT 232 K/MM3 (134-434)
[2018-08-27] MEDS: RIVAROXABAN 15 MG TABLET PO SCH (17:06)
--- NOTE | 2018-08-27 21:25 | PN ---
Progress Note, Physician History of Present Illness: No further chest pain - Current Medication List Current Medications: Active Medications Aspirin (Ecotrin -) 81 mg PO DAILY [facility] Last Admin: 08/27/18 10:11 Dose: 81 mg Ferrous Sulfate (Feosol -) 325 mg PO DAILY [facility] Last Admin: 08/27/18 10:11 Dose: 325 mg Furosemide (Lasix -) 40 mg PO DAILY [facility] Last Admin: 08/27/18 10:11 Dose: 40 mg Losartan Potassium (Cozaar -) 25 mg PO DAILY [facility] Last Admin: 08/27/18 10:11 Dose: 25 mg Pantoprazole Sodium (Protonix -) 40 mg PO DAILY [facility] Last Admin: 08/27/18 10:11 Dose: 40 mg Rivaroxaban (Xarelto) 15 mg PO DAILY@1800 [facility] Last Admin: 08/27/18 17:06 Dose: 15 mg - Objective Vital Signs: Vital Signs Temperature 99.7 F H 08/27/18 18:00 Pulse Rate 53 L 08/27/18 18:00 Respiratory Rate 20 08/27/18 18:00 Blood Pressure 144/66 08/27/18 18:00 O2 Sat by Pulse Oximetry (%) 97 08/27/18 09:00 Constitutional: Yes: Well Nourished Neck: Yes: WNL, Supple Cardiovascular: Yes: WNL, Regular Rate and Rhythm Respiratory: Yes: WNL, Regular, CTA Bilaterally Gastrointestinal: Yes: WNL, Normal Bowel Sounds, Soft Edema: No Labs: CBC, BMP 08/27/18 06:11 08/27/18 06:11 INR, PTT INR 1.13 (0.83-1.09) H 08/25/18 23:28 Problem List - Problems (1) Elevated troponin Assessment/Plan: Trending down Repeat cpk/troponin in am Code(s): R74.8 - ABNORMAL LEVELS OF OTHER SERUM ENZYMES (2) Atypical chest pain Assessment/Plan: Probably muscularskeletal Code(s): R07.89 - OTHER CHEST PAIN (3) HTN (hypertension) Assessment/Plan: BP stable Cont losartan/lasix/asa Code(s): I10 - ESSENTIAL (PRIMARY) HYPERTENSION (4) Atrial fibrillation Assessment/Plan: Heart rate controlled Cont xarelto Code(s): I48.91 - UNSPECIFIED ATRIAL FIBRILLATION
[2018-08-28 06:41] LABS: BILIRUBIN,TOTAL 0.6 mg/dL (0.2-1); BLOOD UREA NITROGEN 27.2 mg/dL (7-18); CALCIUM 9.3 mg/dL (8.5-10.1); CREATININE 1.5 mg/dL (0.55-1.3); POTASSIUM 5.7 mmol/L (3.5-5.1); TOT PROT 7.5 g/dl (6.4-8.2)
--- NOTE | 2018-08-28 09:39 | PN ---
Progress Note, Physician Chief Complaint: seen and examined, no acute distress Denies CP or SOB K+ slightly elevated-- on ARB History of Present Illness: TELE: AF. Rare VPCs - Current Medication List Current Medications: Active Medications Aspirin (Ecotrin -) 81 mg PO DAILY [facility] Last Admin: 08/27/18 10:11 Dose: 81 mg Ferrous Sulfate (Feosol -) 325 mg PO DAILY [facility] Last Admin: 08/27/18 10:11 Dose: 325 mg Furosemide (Lasix -) 40 mg PO DAILY [facility] Last Admin: 08/27/18 10:11 Dose: 40 mg Losartan Potassium (Cozaar -) 25 mg PO DAILY [facility] Last Admin: 08/27/18 10:11 Dose: 25 mg Pantoprazole Sodium (Protonix -) 40 mg PO DAILY [facility] Last Admin: 08/27/18 10:11 Dose: 40 mg Rivaroxaban (Xarelto) 15 mg PO DAILY@1800 [facility] Last Admin: 08/27/18 17:06 Dose: 15 mg - Objective Vital Signs: Vital Signs Temperature 98.6 F 08/28/18 06:00 Pulse Rate 46 L 08/28/18 06:00 Respiratory Rate 20 08/28/18 06:00 Blood Pressure 125/62 08/28/18 06:00 O2 Sat by Pulse Oximetry (%) 98 08/27/18 21:00 Constitutional: Yes: No Distress Cardiovascular: Yes: Pulse Irregular Respiratory: Yes: CTA Bilaterally Gastrointestinal: Yes: Soft, Abdomen, Obese Edema: No Neurological: Yes: Alert, Oriented Labs: CBC, BMP 08/27/18 06:11 08/28/18 05:20 INR, PTT INR 1.13 (0.83-1.09) H 08/25/18 23:28 Laboratory Tests 08/26/18 08/27/18 08/27/18 10:25 06:11 06:11 WBC 4.4 Hgb 13.1 Plt Count 232 D Sodium Potassium BUN Creatinine Troponin I 0.13 H 0.11 H 08/28/18 05:20 WBC Hgb Plt Count Sodium 142 Potassium 5.7 H BUN 27.2 H Creatinine 1.5 H Troponin I 0.08 H - ....Imaging EKG: Image Reviewed Assessment/Plan echo 05/2014: nl lv/rv, lae, mod mr, mod tr, mild-mod pr, rvsp 50-60 cxr: clear lungs ecg: afib, rate 54, old rbbb, no sig change priors tele: afib, rate controlled 82 m hx chronic afib, htn, dm, here with right arm burning/tingling with weakness in right arm. 1. right arm burning/tingling with weakness in right arm: -seems MSK, neuropathy related. Does not seem cardiac related. -no signs acs. trop borderline range with flat trend and nl ck index, not c/w acs. ECG similar to priors. Likely due to diastolic dysfx and chronic PHTN. 2. chronic afib: -rate controlled w/o meds -cont xarelto 3.htn: Controlled -Elevated K+, D/C Losartan. Check ECG 4. DAY: -improved, but with mildly elevated K+. Check ECG, d/c Losartan cardiac shaw stable,
[2018-08-28] MEDS: FUROSEMIDE 40 MG TABLET (FP) PO SCH (09:54)
[2018-08-28] MEDS: FERROUS SO4 325 MG TABLET (FP) PO SCH (09:54)
[2018-08-28] MEDS: PANTOPRAZOLE 40 MG TABLET (FP) PO SCH (09:55)
[2018-08-28] MEDS: ASPIRIN COATED 81 MG TABLET.EC PO SCH (09:55)
[2018-08-28] MEDS ORDERED: SODIUM POLYSTYRENE SULFONATE 15 GM/60 ML BOTTLE PO ONE (11:00)
--- NOTE | 2018-08-28 11:36 | EKG ---
Test Reason : Blood Pressure : / mmHG Vent. Rate : 051 BPM Atrial Rate : 053 BPM P-R Int : 000 ms QRS Dur : 130 ms QT Int : 436 ms P-R-T Axes : 000 -62 118 degrees QTc Int : 401 ms UNDETERMINED RHYTHM, WIDE QRS RHYTHM LEFT AXIS DEVIATION NON-SPECIFIC INTRA-VENTRICULAR CONDUCTION BLOCK T WAVE ABNORMALITY, CONSIDER LATERAL ISCHEMIA ABNORMAL ECG WHEN COMPARED WITH ECG OF 27-AUG-2018 10:06, NO SIGNIFICANT CHANGE WAS FOUND Confirmed by ANATOLY HSU MD ([id number]) on 08/28/2018 11:35:44 AM [facility] Confirmed By:ANATOLY HSU MD
--- NOTE | 2018-08-28 11:44 | EKG ---
Test Reason : Blood Pressure : / mmHG Vent. Rate : 045 BPM Atrial Rate : 036 BPM P-R Int : 000 ms QRS Dur : 126 ms QT Int : 450 ms P-R-T Axes : 000 -63 112 degrees QTc Int : 389 ms WIDE QRS RHYTHM LEFT AXIS DEVIATION NON-SPECIFIC INTRA-VENTRICULAR CONDUCTION BLOCK T WAVE ABNORMALITY, CONSIDER LATERAL ISCHEMIA ABNORMAL ECG WHEN COMPARED WITH ECG OF 25-AUG-2018 22:28, NO SIGNIFICANT CHANGE WAS FOUND Confirmed by ARACELIS RUSSELL, ANATOLY ([id number]) on 08/28/2018 11:43:39 AM Referred By: Brown WHITE Confirmed By:ANATLOY HSU MD
--- NOTE | 2018-08-28 12:48 | ECHO ---
Name: DARIELA HOWE Exam:Adult Echocardiogram Study Date: 08/28/2018 08:32 AM Age: 82 yrs Reason For Study: Chest pain Height: 74 in Weight: 265 lb BSA: 2.4 m2 MMode/2D Measurements & Calculations IVSd: 1.2 cm Ao root diam: 3.4 cm LVIDd: 4.6 cm LA dimension: 4.0 cm LVIDs: 2.9 cm LVPWd: 1.2 cm EDV(Teich): 95.6 ml LVOT diam: 2.0 cm ESV(Teich): 33.0 ml LAV (MOD-bp): 92.3 ml Doppler Measurements & Calculations MV E max edd: 89.7 cm/sec Ao V2 max: 156.1 cm/sec MV A max edd: 88.8 cm/sec Ao max P.7 mmHg MV E/A: 1.0 MV dec time: 0.12 sec LESLEE(V,D): 2.4 cm2 LV V1 max P.6 mmHg MR max edd: 482.0 cm/sec LV V1 max: 117.9 cm/sec MR max P.0 mmHg TR max edd: 396.6 cm/sec PA V2 max: 157.5 cm/sec TR max P.0 mmHg PA max P.9 mmHg Med Peak E' Edd: 6.3 cm/sec PI Vmax: 310.2 cm/sec Med E/e': 14.2 Lat Peak E' Edd: 6.7 cm/sec Lat E/e': 13.3 Procedure A complete two-dimensional transthoracic echocardiogram was performed (2D, M-mode, Doppler and color flow Doppler). Left Ventricle The left ventricle is normal in size. There is mild concentric left ventricular hypertrophy. Left anette tricular systolic function is normal. Ejection Fraction = 60-65%. No regional wall motion abnormalities noted. Right Ventricle The right ventricle is normal size. The right ventricular systolic function is normal. Atria The left atrium is mildly dilated. LA volume index is 38 ml/m2. The right atrium is mildly dilated. Mitral Valve The mitral valve is normal in structure and function. There is mild mitral regurgitation. Tricuspid Valve The tricuspid valve is normal in structure and function. There is moderate to severe tricuspid regurg itation. Pulmonary artery systolic pressure is at least 88 mmHg assuming RA pressure of 8 mmHg. Aortic Valve There is mild aortic sclerosis.;. Trace to mild aortic regurgitation. Pulmonic Valve The pulmonic valve is not well visualized. Mild pulmonic valvular regurgitation. Great Vessels The aortic root is normal size. Pericardium/Pleura There is no pericardial effusion. Interpretation Summary The left ventricle is normal in size. There is mild concentric left ventricular hypertrophy. Left ventricular systolic function is normal. No regional wall motion abnormalities noted. Ejection Fraction = 60-65%. The right ventricular systolic function is normal. The left atrium is mildly dilated. The right atrium is mildly dilated. There is mild mitral regurgitation. There is moderate to severe tricuspid regurgitation. Pulmonary artery systolic pressure is at least 88 mmHg assuming RA pressure of 8 mmHg There is mild aortic sclerosis.; Trace to mild aortic regurgitation. Mild pulmonic valvular regurgitation. There is no pericardial effusion. Previous study is not available for comparison Alex Angel MD 08/28/2018 12:47 PM
[2018-08-28 15:59] LABS: BLOOD UREA NITROGEN 24.9 mg/dL (7-18); CALCIUM 8.3 mg/dL (8.5-10.1); CREATININE 1.4 mg/dL (0.55-1.3); POTASSIUM 4.3 mmol/L (3.5-5.1)
[2018-08-28] MEDS: RIVAROXABAN 15 MG TABLET PO SCH (17:31)
--- NOTE | 2018-08-28 22:23 | PN ---
Progress Note, Physician History of Present Illness: No further chest pain - Current Medication List Current Medications: Active Medications Aspirin (Ecotrin -) 81 mg PO DAILY [facility] Last Admin: 08/28/18 09:55 Dose: 81 mg Ferrous Sulfate (Feosol -) 325 mg PO DAILY [facility] Last Admin: 08/28/18 09:54 Dose: 325 mg Furosemide (Lasix -) 40 mg PO DAILY [facility] Last Admin: 08/28/18 09:54 Dose: 40 mg Pantoprazole Sodium (Protonix -) 40 mg PO DAILY [facility] Last Admin: 08/28/18 09:55 Dose: 40 mg Rivaroxaban (Xarelto) 15 mg PO DAILY@1800 [facility] Last Admin: 08/28/18 17:31 Dose: 15 mg - Objective Vital Signs: Vital Signs Temperature 98.9 F 08/28/18 20:12 Pulse Rate 40 L 08/28/18 20:12 Respiratory Rate 18 08/28/18 20:12 Blood Pressure 113/50 L 08/28/18 20:12 O2 Sat by Pulse Oximetry (%) 98 08/28/18 20:12 Constitutional: Yes: Well Nourished Neck: Yes: WNL, Supple Cardiovascular: Yes: WNL, Regular Rate and Rhythm Respiratory: Yes: WNL, Regular, CTA Bilaterally Gastrointestinal: Yes: WNL, Normal Bowel Sounds, Soft Labs: CBC, BMP 08/27/18 06:11 08/28/18 14:30 INR, PTT INR 1.13 (0.83-1.09) H 08/25/18 23:28 Problem List - Problems (1) Elevated troponin Assessment/Plan: Trending down Code(s): R74.8 - ABNORMAL LEVELS OF OTHER SERUM ENZYMES (2) Atypical chest pain Assessment/Plan: Probably muscularskeletal Pt had first part of stress test today If stress test tomorrow is negative than will dc home Elevated K+ [place] Code(s): R07.89 - OTHER CHEST PAIN (3) HTN (hypertension) Assessment/Plan: BP stable Cont lasix/asa Losartan was dc'ed due to hyperkalemia Pt was given kayexalate Code(s): I10 - ESSENTIAL (PRIMARY) HYPERTENSION (4) Atrial fibrillation Assessment/Plan: Heart rate controlled Cont xarelto Code(s): I48.91 - UNSPECIFIED ATRIAL FIBRILLATION (5) ARF (acute renal failure) Assessment/Plan: Cont to monitor Code(s): N17.9 - ACUTE KIDNEY FAILURE, UNSPECIFIED
[2018-08-29 07:41] LABS: ALBUMIN 3.4 g/dl (3.4-5.0); BILIRUBIN,TOTAL 0.6 mg/dL (0.2-1); BLOOD UREA NITROGEN 24.8 mg/dL (7-18); CALCIUM 8.8 mg/dL (8.5-10.1); CREATININE 1.4 mg/dL (0.55-1.3); POTASSIUM 4.5 mmol/L (3.5-5.1); TOT PROT 6.6 g/dl (6.4-8.2)
[2018-08-29] MEDS ORDERED: REGADENOSON 0.4 MG/5 ML PRE-FILLED SYRINGE IVPUSH ONE ×2 (09:15→09:41)
[2018-08-29] MEDS: FERROUS SO4 325 MG TABLET (FP) PO SCH (09:53)
[2018-08-29] MEDS: PANTOPRAZOLE 40 MG TABLET (FP) PO SCH (09:53)
[2018-08-29] MEDS: ASPIRIN COATED 81 MG TABLET.EC PO SCH (09:53)
[2018-08-29] MEDS: FUROSEMIDE 40 MG TABLET (FP) PO SCH (11:26)
--- NOTE | 2018-08-29 11:53 | PN ---
Progress Note (short form) - Note Progress Note: s: no cp, palps, dyspnea, dizziness, lightheadedness TELE: AF. Rare VPCs Current Medications Aspirin (Ecotrin -) 81 mg PO DAILY [facility] Last Admin: 08/29/18 09:53 Dose: 81 mg Ferrous Sulfate (Feosol -) 325 mg PO DAILY [facility] Last Admin: 08/29/18 09:53 Dose: 325 mg Furosemide (Lasix -) 40 mg PO DAILY [facility] Last Admin: 08/29/18 11:26 Dose: 40 mg Pantoprazole Sodium (Protonix -) 40 mg PO DAILY [facility] Last Admin: 08/29/18 09:53 Dose: 40 mg Rivaroxaban (Xarelto) 15 mg PO DAILY@1800 [facility] Last Admin: 08/28/18 17:31 Dose: 15 mg Vital Signs Period Temp Pulse Resp BP Sys/Will Pulse Ox Last 24 Hr 97.9 F-98.9 F 40-58 18-20 109-124/42-79 98-99 Constitutional: Yes: No Distress Neck: no JVD Cardiovascular: Yes: Pulse Irregular Respiratory: Yes: CTA Bilaterally Gastrointestinal: Yes: Soft, Abdomen, Obese Edema: No Neurological: Yes: Alert, Oriented no jaundice, diaphoresis not agitated - ....Imaging EKG: Image Reviewed Assessment/Plan echo 05/2014: nl lv/rv, lae, mod mr, mod tr, mild-mod pr, rvsp 50-60 cxr: clear lungs ecg: afib, rate 54, old rbbb, no sig change priors tele: afib, rate controlled, 4 bt NSVT yesterday afternoon echo 08/2018 mild conc LVH, nl LV/RV function, mild biatrial enlargement, mod to severe TR, PASP >88 mmHg severe pulm HTN 82 m hx chronic afib, htn, dm, here with right arm burning/tingling with weakness in right arm. 1. right arm burning/tingling with weakness in right arm: -seems MSK, neuropathy related. Does not seem cardiac related. -no signs acs. trop borderline range with flat trend and nl ck index, not c/w acs. ECG similar to priors. Likely due to diastolic dysfx and chronic PHTN. - echo nl LV function, severe pulm HTN - stress test pending, if benign findings no further inpatient workup 2. chronic afib: -rate controlled w/o meds -cont xarelto 3.htn: Controlled - losartan dc'ed for elevated K 4. DAY: -improved
[2018-08-29] MEDS: RIVAROXABAN 15 MG TABLET PO SCH (17:12)
[2018-08-29 17:17] VITALS: BP 114/54; PULSE 72; TEMP 98.7
== END 2018-08-29 18:05 | disposition home or self-care (01) | DRG 313 ==
LOC: JER 22:29 → JERBED 08-26 01:03 → J4W 08-26 03:26
PROVIDERS: ADMIT Internal Medicine; ATTEND Internal Medicine
DX: R07.89 Other chest pain (principal); N17.9 Acute kidney failure, unspecified; I27.20 Pulmonary hypertension, unspecified; I10 Essential (primary) hypertension; K21.9 Gastro-esophageal reflux disease without esophagitis; I48.91 Unspecified atrial fibrillation; I48.2 Chronic atrial fibrillation; E11.9 Type 2 diabetes mellitus without complications; E87.5 Hyperkalemia; R11.0 Nausea; R74.8 Abnormal levels of other serum enzymes; E66.9 Obesity, unspecified; Z68.33 Body mass index [BMI] 33.0-33.9, adult; Z87.11 Personal history of peptic ulcer disease
CPT/HCPCS: 36415; 71045-TC-FY; 78452-TC; 80048; 80053; 80061; 81003; 82550; 82553; 82962; 83721; 83735; 83880; 84484; 85025; 85610; 85730; 93005; 93010; 93017; 93306-TC; 99283-25; A9502; J2785

== ENCOUNTER 2020-02-29 15:43 | Inpatient (IN) | payer OTHER, BC ==
[2020-02-29 16:09] VITALS: BMI 35.4
[2020-02-29] MEDS ORDERED: MAG HYDROX/AL HYDROX/SIMETH 30 ML UNIT-DOSE CUP PO ONE (16:36)
[2020-02-29] MEDS ORDERED: FAMOTIDINE 20 MG/50 ML IVPB 20 MG/50 ML MG IVPB ONE ×2 (16:36→17:57)
[2020-02-29 17:02] LABS: BASO % 0.9 % (0-2.0); HEMATOCRIT 45.3 % (35.4-49); HEMOGLOBIN 14.5 GM/dL (11.7-16.9); LYMPH % 1.4 % (8-40); MCHC 31.9 g/dl (32.0-35.9); MEAN CELL VOLUME 97.2 fl (80-96); MEAN PLT VOLUME 11.1 fl (7.5-11.1); MONO % 5.5 % (3.8-10.2); NEUT % 92.2 % (42.8-82.8); PLATELET COUNT 155 K/MM3 (134-434); RBC 4.66 M/mm3 (4.00-5.60); RDW 13.9 % (11.9-15.9); WHITE BLOOD COUNT 16.7 K/mm3 (4.0-10.0)
[2020-02-29 17:12] LABS: INR 1.24 (0.83-1.09); PROTHROMBIN TIME (PATIENT) 15.2 SEC (9.7-13.0)
[2020-02-29 17:27] LABS: CHLORIDE 101 mmol/L (98-107); POTASSIUM 4.6 mmol/L (3.5-5.1); SODIUM 136 mmol/L (136-145)
[2020-02-29 17:29] LABS: CALCIUM 9.1 mg/dL (8.5-10.1)
[2020-02-29 17:30] LABS: ALBUMIN 3.6 g/dl (3.4-5.0); ANION GAP 11 MMOL/L (8-16); BLOOD UREA NITROGEN 17.8 mg/dL (7-18); CO2 25 mmol/L (21-32); GLUCOSE,RANDOM 221 mg/dL (74-106); MAGNESIUM 1.9 mg/dL (1.8-2.4)
[2020-02-29 17:33] LABS: CREATININE 1.2 mg/dL (0.55-1.3); SGOT/AST 47 U/L (15-37); SGPT/ALT 40 U/L (13-61)
[2020-02-29 17:34] LABS: BILIRUBIN,TOTAL 0.8 mg/dL (0.2-1); TOT PROT 8.1 g/dl (6.4-8.2)
[2020-02-29 17:36] LABS: ALK PHOS 134 U/L (45-117)
[2020-02-29 17:37] LABS: ANISOCYTOSIS 1+; MACROCYTOSIS 0; PLATELET ESTIMATE DECREASED
[2020-02-29] MEDS ORDERED: MAG HYDROX/AL HYDROX/SIMETH 30 ML UNIT-DOSE CUP ONE (17:57)
[2020-03-01 15:29] LABS: BASO % 0.2 % (0-2.0); HEMATOCRIT 45.7 % (35.4-49); HEMOGLOBIN 14.8 GM/dL (11.7-16.9); LYMPH % 3.2 % (8-40); MCH 31.3 pg (25.7-33.7); MCHC 32.4 g/dl (32.0-35.9); MEAN CELL VOLUME 96.7 fl (80-96); MEAN PLT VOLUME 11.1 fl (7.5-11.1); MONO % 9.8 % (3.8-10.2); NEUT % 86.8 % (42.8-82.8); PLATELET COUNT 152 K/MM3 (134-434); RBC 4.73 M/mm3 (4.00-5.60); WHITE BLOOD COUNT 11.1 K/mm3 (4.0-10.0)
[2020-03-01] MEDS: DEXTROSE 5%-0.45% SALINE 1,000 ML IV SCH (19:15)
[2020-03-01] MEDS: APIXABAN 2.5 MG TABLET PO SCH (22:00)
[2020-03-01] MEDS: SIMETHICONE 80 MG TAB.CHEW (FP) PO PRN (22:48)
[2020-03-02] MEDS: SIMETHICONE 80 MG TAB.CHEW (FP) PO PRN ×2 (05:58→16:47)
[2020-03-02 07:11] LABS: POTASSIUM 3.8 mmol/L (3.5-5.1)
[2020-03-02 07:14] LABS: CALCIUM 8.8 mg/dL (8.5-10.1)
[2020-03-02 07:15] LABS: ALBUMIN 2.8 g/dl (3.4-5.0); BLOOD UREA NITROGEN 16.9 mg/dL (7-18)
[2020-03-02 07:17] LABS: CREATININE 1.1 mg/dL (0.55-1.3)
[2020-03-02 07:18] LABS: BILIRUBIN,TOTAL 1.1 mg/dL (0.2-1); TOT PROT 6.7 g/dl (6.4-8.2)
[2020-03-02] MEDS: FUROSEMIDE 20 MG TABLET (FP) PO SCH (09:03)
[2020-03-02] MEDS: PANTOPRAZOLE 40 MG TABLET PO SCH (09:03)
[2020-03-02] MEDS: APIXABAN 2.5 MG TABLET PO SCH ×2 (09:04→21:28)
[2020-03-02] MEDS: DEXTROSE 5%-0.45% SALINE 1,000 ML IV SCH (10:20)
[2020-03-02] MEDS: METOPROLOL TARTRATE 25 MG TABLET (FP) PO SCH (21:28)
[2020-03-02] MEDS ORDERED: MAG HYDROX/AL HYDROX/SIMETH 30 ML UNIT-DOSE CUP PO ONE (21:54)
[2020-03-03 07:01] LABS: BASO % 0.2 % (0-2.0); HEMATOCRIT 45.5 % (35.4-49); HEMOGLOBIN 14.9 GM/dL (11.7-16.9); LYMPH % 4.1 % (8-40); MCH 31.6 pg (25.7-33.7); MCHC 32.8 g/dl (32.0-35.9); MEAN CELL VOLUME 96.3 fl (80-96); MEAN PLT VOLUME 11.2 fl (7.5-11.1); MONO % 12.5 % (3.8-10.2); NEUT % 83.2 % (42.8-82.8); PLATELET COUNT 173 K/MM3 (134-434); RBC 4.73 M/mm3 (4.00-5.60); RDW 13.9 % (11.9-15.9); WHITE BLOOD COUNT 12.4 K/mm3 (4.0-10.0)
[2020-03-03 07:15] LABS: POTASSIUM 4.9 mmol/L (3.5-5.1)
[2020-03-03 07:20] LABS: ALBUMIN 2.9 g/dl (3.4-5.0); BLOOD UREA NITROGEN 32.4 mg/dL (7-18); CALCIUM 9.2 mg/dL (8.5-10.1)
[2020-03-03 07:25] LABS: BILIRUBIN,TOTAL 1.9 mg/dL (0.2-1)
[2020-03-03] MEDS: APIXABAN 2.5 MG TABLET PO SCH ×2 (10:32→21:51)
[2020-03-03] MEDS: FUROSEMIDE 20 MG TABLET (FP) PO SCH (10:32)
[2020-03-03] MEDS: METOPROLOL TARTRATE 25 MG TABLET (FP) PO SCH ×2 (10:32→21:51)
[2020-03-03] MEDS: PANTOPRAZOLE 40 MG TABLET PO SCH (10:32)
[2020-03-03 11:14] LABS: PLATELET ESTIMATE NORMAL
[2020-03-03] MEDS: SIMETHICONE 80 MG TAB.CHEW (FP) PO PRN (17:41)
[2020-03-04] MEDS ORDERED: REGADENOSON 0.4 MG/5 ML PRE-FILLED SYRINGE IVPUSH ONE ×2 (10:39→11:00)
[2020-03-04] MEDS: FUROSEMIDE 20 MG TABLET (FP) PO SCH (12:04)
[2020-03-04] MEDS: METOPROLOL TARTRATE 25 MG TABLET (FP) PO SCH ×2 (12:04→21:44)
[2020-03-04] MEDS: APIXABAN 2.5 MG TABLET PO SCH ×2 (12:05→21:44)
[2020-03-04] MEDS: PANTOPRAZOLE 40 MG TABLET PO SCH ×2 (12:05→21:44)
[2020-03-04] MEDS: SIMETHICONE 80 MG TAB.CHEW (FP) PO SCH ×3 (14:26→21:45)
[2020-03-04 15:00] LABS: N-TERMINAL BNP 3350.4 pg/ml (5-450)
[2020-03-04] MEDS ORDERED: PT OWN MED DRAWER 7, Y5N ONE ×2 (16:47→21:42)
[2020-03-04] MEDS: METOCLOPRAMIDE HCL 10 MG TABLET (FP) PO SCH (17:03)
[2020-03-04] MEDS: LIPASE/PROTEASE/AMYLASE 36,000 UNIT CAPSULE PO SCH (17:35)
[2020-03-04] MEDS: RIFAXIMIN 550 MG TABLET (UD) PO SCH (21:44)
[2020-03-04] MEDS ORDERED: FUROSEMIDE 40 MG/4 ML INJECTABLE VIAL IVPUSH ONE (21:51)
[2020-03-04] MEDS ORDERED: traMADol HCL 50 MG TABLET PO PRN (21:52)
[2020-03-05] MEDS ORDERED: PT OWN MED DRAWER 7, Y5N ONE ×5 (06:17→16:50)
[2020-03-05] MEDS: METOCLOPRAMIDE HCL 10 MG TABLET (FP) PO SCH ×3 (06:21→16:53)
[2020-03-05] MEDS: RIFAXIMIN 550 MG TABLET (UD) PO SCH ×3 (06:22→21:12)
[2020-03-05 07:48] LABS: BASO % 0.3 % (0-2.0); EOS % 0.1 % (0-4.5); HEMATOCRIT 42.2 % (35.4-49); HEMOGLOBIN 13.7 GM/dL (11.7-16.9); MCH 31.2 pg (25.7-33.7); MCHC 32.5 g/dl (32.0-35.9); MEAN CELL VOLUME 95.8 fl (80-96); MEAN PLT VOLUME 10.2 fl (7.5-11.1); MONO % 5.1 % (3.8-10.2); NEUT % 89.5 % (42.8-82.8); PLATELET COUNT 205 K/MM3 (134-434); RDW 14.2 % (11.9-15.9); WHITE BLOOD COUNT 16.1 K/mm3 (4.0-10.0)
[2020-03-05 08:31] LABS: ALBUMIN 2.7 g/dl (3.4-5.0); BILIRUBIN,DIRECT 1.8 mg/dL (0.0-0.2); BILIRUBIN,TOTAL 2.6 mg/dL (0.2-1); BLOOD UREA NITROGEN 72.7 mg/dL (7-18); CALCIUM 8.8 mg/dL (8.5-10.1); CREATININE 2.7 mg/dL (0.55-1.3); POTASSIUM 4.6 mmol/L (3.5-5.1); TOT PROT 6.8 g/dl (6.4-8.2)
[2020-03-05] MEDS: SIMETHICONE 80 MG TAB.CHEW (FP) PO SCH ×3 (09:05→17:14)
[2020-03-05] MEDS: FUROSEMIDE 20 MG TABLET (FP) PO SCH (09:06)
[2020-03-05] MEDS: PANTOPRAZOLE 40 MG TABLET PO SCH ×2 (09:06→21:12)
[2020-03-05] MEDS: METOPROLOL TARTRATE 25 MG TABLET (FP) PO SCH ×2 (09:07→21:12)
[2020-03-05] MEDS: APIXABAN 2.5 MG TABLET PO SCH ×2 (09:07→21:12)
[2020-03-05] MEDS: LIPASE/PROTEASE/AMYLASE 36,000 UNIT CAPSULE PO SCH ×3 (09:15→16:53)
[2020-03-05 11:41] LABS: ANISOCYTOSIS 1+; MACROCYTOSIS 1+; PLATELET ESTIMATE NORMAL
[2020-03-05] MEDS ORDERED: LACTATED RINGERS SOLUTION 1,000 ML/1,000 ML INFUS.BAG IV SCH (12:00)
[2020-03-05] MEDS ORDERED: SODIUM PHOSPHATE/NA BIPHOS 133 ML ENEMA PR ONE (19:58)
[2020-03-05 21:21] LABS: EPI CELLS 11 /uL (0-25.1); HYALINE CASTS 13 /uL (0-3.1); URINE APPEARANCE CLEAR; URINE BILIRUBIN 2+ (NEGATIVE); URINE COLOR DK YELLOW; URINE GLUCOSE (UA) NEGATIVE (NEGATIVE); URINE KETONE TRACE (NEGATIVE); URINE LEUK ESTERASE TRACE (NEGATIVE); URINE NITRITE POSITIVE (NEGATIVE); URINE PROTEIN 1+ (NEGATIVE); URINE RBC 31 /uL (0-23.9); URINE UROBILINOGEN 4.0 E.U/dl mg/dL (0.2-1.0); URINE WBC 8 /uL (0-25.8)
[2020-03-05 22:32] LABS: URINE BACTERIA 7 /uL (0-1359)
[2020-03-06] MEDS ORDERED: PT OWN MED DRAWER 7, Y5N ONE ×2 (05:44→08:55)
[2020-03-06] MEDS: RIFAXIMIN 550 MG TABLET (UD) PO SCH ×2 (05:45→13:42)
[2020-03-06] MEDS ORDERED: PIPERACILLIN/TAZOB 3.375 GM 3.375 GM in DEXTROSE 5%-WATER - 50 ML IVPB SCH (07:30)
[2020-03-06 07:50] LABS: BASO % 0.1 % (0-2.0); HEMATOCRIT 40.8 % (35.4-49); HEMOGLOBIN 13.3 GM/dL (11.7-16.9); LYMPH % 3.6 % (8-40); MCH 31.3 pg (25.7-33.7); MCHC 32.7 g/dl (32.0-35.9); MEAN CELL VOLUME 95.7 fl (80-96); MEAN PLT VOLUME 10.3 fl (7.5-11.1); MONO % 5.4 % (3.8-10.2); NEUT % 90.9 % (42.8-82.8); PLATELET COUNT 226 K/MM3 (134-434); RBC 4.27 M/mm3 (4.00-5.60); RDW 14.4 % (11.9-15.9)
[2020-03-06 07:55] LABS: POTASSIUM 4.2 mmol/L (3.5-5.1)
[2020-03-06 08:00] LABS: ALBUMIN 2.7 g/dl (3.4-5.0); BLOOD UREA NITROGEN 89.4 mg/dL (7-18); CALCIUM 8.7 mg/dL (8.5-10.1)
[2020-03-06 08:04] LABS: CREATININE 2.6 mg/dL (0.55-1.3)
[2020-03-06 08:05] LABS: TOT PROT 6.8 g/dl (6.4-8.2)
[2020-03-06] MEDS ORDERED: SODIUM CHLORIDE 1,000 ML IV SCH ×2 (08:45→14:49)
[2020-03-06] MEDS ORDERED: PIPERACILLIN/TAZOBACTAM 3.375 GM VIAL IVPB ONE ×3 (08:55→19:00)
[2020-03-06] MEDS ORDERED: DEXTROSE 5%-WATER - 50 ML IVPB ONE (08:56)
[2020-03-06] MEDS: PIPERACILLIN/TAZOB 3.375 GM 3.375 GM in DEXTROSE 5%-WATER - 50 ML IVPB SCH ×2 (09:12→19:03)
[2020-03-06] MEDS: PANTOPRAZOLE 40 MG TABLET PO SCH ×2 (09:12→09:37)
[2020-03-06] MEDS: APIXABAN 2.5 MG TABLET PO SCH (09:12)
[2020-03-06] MEDS: METOPROLOL TARTRATE 25 MG TABLET (FP) PO SCH (09:12)
[2020-03-06] MEDS: LIPASE/PROTEASE/AMYLASE 36,000 UNIT CAPSULE PO SCH ×3 (09:13→12:41)
[2020-03-06] MEDS ORDERED: SODIUM PHOSPHATE/NA BIPHOS 133 ML ENEMA RC ONE (11:15)
[2020-03-06 14:05] LABS: ANISOCYTOSIS 2+; MACROCYTOSIS 0; PLATELET ESTIMATE NORMAL
[2020-03-06] MEDS ORDERED: HEPARIN NA (PORCINE) 5,000 UNITS/ML 1ML VIAL IVPUSH PRN ×4 (15:08→21:00)
[2020-03-06] MEDS ORDERED: HEPARIN INFUSION - 25,000 UNITS/500 ML INFUS.BAG IVPB SCH ×2 (15:15→21:00)
[2020-03-06 17:45] VITALS: BP 124/69; PULSE 89; TEMP 97.8
[2020-03-06] MEDS ORDERED: PANTOPRAZOLE SODIUM 40 MG in SODIUM CHLORIDE 100 ML IVPB SCH (22:00)
[2020-03-06] MEDS ORDERED: PANTOPRAZOLE SODIUM 40 MG VIAL IVPUSH SCH (22:00)
[2020-03-07 00:30] LABS: EPI CELLS 7 /uL (0-25.1); HYALINE CASTS 6 /uL (0-3.1); URINE APPEARANCE CLOUDY; URINE BILIRUBIN 2+ (NEGATIVE); URINE COLOR DK YELLOW; URINE GLUCOSE (UA) NEGATIVE (NEGATIVE); URINE KETONE TRACE (NEGATIVE); URINE LEUK ESTERASE TRACE (NEGATIVE); URINE NITRITE POSITIVE (NEGATIVE); URINE PROTEIN 1+ (NEGATIVE); URINE RBC 171 /uL (0-23.9); URINE WBC 7 /uL (0-25.8)
== END 2020-03-06 20:50 | disposition short-term general hospital (02) | DRG 389 ==
LOC: JER 15:43 → JERBED 19:01 → J4S 23:19 → OBSVTOIN 03-01 11:08 → J4S 03-04 14:53
PROVIDERS: ADMIT Internal Medicine; ATTEND Internal Medicine
PROC: 0D9670Z Drainage of Stomach with Drainage Device, Via Natural or Artificial Opening (ICD-10-PCS; principal; 2020-03-05)
DX: K56.690 Other partial intestinal obstruction (principal); I48.20 Chronic atrial fibrillation, unspecified; N39.0 Urinary tract infection, site not specified; N17.9 Acute kidney failure, unspecified; I45.2 Bifascicular block; K58.9 Irritable bowel syndrome, unspecified; R10.13 Epigastric pain; I10 Essential (primary) hypertension; K21.9 Gastro-esophageal reflux disease without esophagitis; J45.909 Unspecified asthma, uncomplicated; E11.9 Type 2 diabetes mellitus without complications; I27.20 Pulmonary hypertension, unspecified; E88.09 Other disorders of plasma-protein metabolism, not elsewhere classified; R33.9 Retention of urine, unspecified; D72.829 Elevated white blood cell count, unspecified; E66.9 Obesity, unspecified; Z68.35 Body mass index [BMI] 35.0-35.9, adult; Z96.652 Presence of left artificial knee joint
CPT/HCPCS: 36415; 71045-TC-FY; 74021-TC-FY; 74176-TC; 76700-TC; 76856-TC; 78452-TC; 80053; 80061; 81003; 82150; 82248; 82436; 82550; 82553; 82565; 83036; 83605; 83690; 83721; 83735; 83880; 84133; 84300; 84443; 84484; 85025; 85610; 85730; 86850; 86900; 86901; 87040; 87045; 87046; 87086; 93005; 93010; 93017; 93306-TC; 99285-25; A9502; C9803; G0378; J2785; Q9967; U0003

== ENCOUNTER 2020-06-23 16:48 | Inpatient (IN) | payer OTHER, BC ==
[2020-06-23] MEDS ORDERED: LIDOCAINE HCL 2% JELLY 10 ML CARTRIDGE UR ONE (17:47)
[2020-06-23] MEDS ORDERED: LIDOCAINE HCL 2% JELLY 10 ML CARTRIDGE ONE (17:48)
[2020-06-23 19:21] LABS: BASO % 0.8 % (0-2.0); HEMATOCRIT 30.4 % (35.4-49); HEMOGLOBIN 9.8 GM/dL (11.7-16.9); LYMPH % 3.9 % (8-40); MCH 30.5 pg (25.7-33.7); MCHC 32.4 g/dl (32.0-35.9); MEAN CELL VOLUME 94.1 fl (80-96); MEAN PLT VOLUME 9.5 fl (7.5-11.1); MONO % 3.9 % (3.8-10.2); NEUT % 91.4 % (42.8-82.8); PLATELET COUNT 229 K/MM3 (134-434); RBC 3.23 M/mm3 (4.00-5.60); WHITE BLOOD COUNT 7.1 K/mm3 (4.0-10.0)
[2020-06-23 19:26] LABS: INR 1.37 (0.83-1.09); PROTHROMBIN TIME (PATIENT) 16.4 SEC (9.7-13.0)
[2020-06-23 19:29] LABS: ACTIVATED PTT 32.1 SECONDS (25.2-36.5)
[2020-06-23 19:34] LABS: ALBUMIN 3.6 g/dl (3.4-5.0); BLOOD UREA NITROGEN 20.6 mg/dL (7-18); CALCIUM 8.8 mg/dL (8.5-10.1)
[2020-06-23 19:37] LABS: CREATININE 1.4 mg/dL (0.55-1.3)
[2020-06-23 19:39] LABS: BILIRUBIN,TOTAL 0.8 mg/dL (0.2-1); TOT PROT 7.9 g/dl (6.4-8.2)
[2020-06-23 19:42] LABS: N-TERMINAL BNP 3318.2 pg/ml (5-450)
[2020-06-23 21:32] LABS: ANISOCYTOSIS 0; MACROCYTOSIS 0; PLATELET ESTIMATE NORMAL
[2020-06-24 07:51] LABS: BASO % 0.7 % (0-2.0); EOS % 1.3 % (0-4.5); HEMOGLOBIN 9.7 GM/dL (11.7-16.9); LYMPH % 17.1 % (8-40); MCH 30.7 pg (25.7-33.7); MCHC 32.4 g/dl (32.0-35.9); MEAN CELL VOLUME 94.6 fl (80-96); MEAN PLT VOLUME 9.4 fl (7.5-11.1); MONO % 10.1 % (3.8-10.2); NEUT % 70.8 % (42.8-82.8); PLATELET COUNT 222 K/MM3 (134-434); RBC 3.17 M/mm3 (4.00-5.60); RDW 16.1 % (11.9-15.9); WHITE BLOOD COUNT 5.6 K/mm3 (4.0-10.0)
[2020-06-24 08:13] LABS: CALCIUM 8.2 mg/dL (8.5-10.1)
[2020-06-24 08:14] LABS: ALBUMIN 3.4 g/dl (3.4-5.0); BLOOD UREA NITROGEN 17.7 mg/dL (7-18)
[2020-06-24 08:17] LABS: CREATININE 1.3 mg/dL (0.55-1.3)
[2020-06-24 08:19] LABS: BILIRUBIN,TOTAL 0.9 mg/dL (0.2-1); TOT PROT 7.6 g/dl (6.4-8.2)
[2020-06-24] MEDS: LIPASE/PROTEASE/AMYLASE 36,000 UNIT CAPSULE PO SCH ×3 (08:52→17:10)
[2020-06-24] MEDS ORDERED: FUROSEMIDE 40 MG/4 ML INJECTABLE VIAL ONE (09:45)
[2020-06-24] MEDS ORDERED: METOPROLOL TARTRATE 25 MG TABLET (FP) ONE (09:45)
[2020-06-24] MEDS: FUROSEMIDE 40 MG/4 ML INJECTABLE VIAL IVPUSH SCH (09:45)
[2020-06-24] MEDS: METOPROLOL TARTRATE 25 MG TABLET (FP) PO SCH ×2 (09:58→22:53)
[2020-06-24] MEDS ORDERED: PT OWN MED DRAWER 7, Y5N ONE ×2 (12:49→13:48)
[2020-06-24 13:44] VITALS: BMI 31.3
[2020-06-25] MEDS ORDERED: PT OWN MED DRAWER 7, Y5N ONE ×3 (08:23→16:37)
[2020-06-25] MEDS: LIPASE/PROTEASE/AMYLASE 36,000 UNIT CAPSULE PO SCH ×3 (08:23→17:01)
[2020-06-25] MEDS: METOPROLOL TARTRATE 25 MG TABLET (FP) PO SCH ×2 (09:43→22:53)
[2020-06-25] MEDS: FUROSEMIDE 40 MG/4 ML INJECTABLE VIAL IVPUSH SCH (09:43)
[2020-06-25] MEDS ORDERED: TAMSULOSIN HCL 0.4 MG CAP PO ONE (13:00)
[2020-06-25] MEDS: INSULIN SLIDING SCALE (NOVOLOG) 1 VIAL SQ SCH (22:52)
[2020-06-26] MEDS: INSULIN SLIDING SCALE (NOVOLOG) 1 VIAL SQ SCH ×4 (06:10→21:42)
[2020-06-26 08:27] LABS: BASO % 0.8 % (0-2.0); EOS % 2.1 % (0-4.5); HEMATOCRIT 28.7 % (35.4-49); HEMOGLOBIN 9.3 GM/dL (11.7-16.9); LYMPH % 21.2 % (8-40); MCH 30.6 pg (25.7-33.7); MCHC 32.4 g/dl (32.0-35.9); MEAN CELL VOLUME 94.3 fl (80-96); MEAN PLT VOLUME 10.2 fl (7.5-11.1); MONO % 10.7 % (3.8-10.2); NEUT % 65.2 % (42.8-82.8); PLATELET COUNT 191 K/MM3 (134-434); RBC 3.05 M/mm3 (4.00-5.60); RDW 16.3 % (11.9-15.9); WHITE BLOOD COUNT 4.5 K/mm3 (4.0-10.0)
[2020-06-26] MEDS ORDERED: PT OWN MED DRAWER 7, Y5N ONE (08:40)
[2020-06-26] MEDS ORDERED: INSULIN (NOVOLOG) ASPART 100 UNITS/ML 10ML VIAL ONE (08:40)
[2020-06-26 08:48] LABS: BLOOD UREA NITROGEN 29.5 mg/dL (7-18); CALCIUM 8.4 mg/dL (8.5-10.1)
[2020-06-26 08:49] LABS: ALBUMIN 3.1 g/dl (3.4-5.0)
[2020-06-26] MEDS: LIPASE/PROTEASE/AMYLASE 36,000 UNIT CAPSULE PO SCH ×3 (08:49→17:33)
[2020-06-26 08:51] LABS: CREATININE 1.4 mg/dL (0.55-1.3)
[2020-06-26 08:53] LABS: BILIRUBIN,TOTAL 0.7 mg/dL (0.2-1); TOT PROT 6.8 g/dl (6.4-8.2)
[2020-06-26] MEDS: METOPROLOL TARTRATE 25 MG TABLET (FP) PO SCH ×3 (09:00→21:34)
[2020-06-26] MEDS: FUROSEMIDE 40 MG/4 ML INJECTABLE VIAL IVPUSH SCH ×3 (09:00→17:33)
[2020-06-27] MEDS: INSULIN SLIDING SCALE (NOVOLOG) 1 VIAL SQ SCH ×4 (06:30→21:30)
[2020-06-27] MEDS: FUROSEMIDE 40 MG/4 ML INJECTABLE VIAL IVPUSH SCH ×2 (06:30→13:23)
[2020-06-27] MEDS ORDERED: PT OWN MED DRAWER 7, Y5N ONE ×2 (08:52→09:07)
[2020-06-27 09:01] LABS: ALBUMIN 3.5 g/dl (3.4-5.0); BLOOD UREA NITROGEN 32.1 mg/dL (7-18); CALCIUM 8.9 mg/dL (8.5-10.1)
[2020-06-27 09:06] LABS: TOT PROT 7.7 g/dl (6.4-8.2)
[2020-06-27 09:07] LABS: CREATININE 1.5 mg/dL (0.55-1.3)
[2020-06-27 09:09] LABS: BILIRUBIN,TOTAL 0.6 mg/dL (0.2-1)
[2020-06-27] MEDS: LIPASE/PROTEASE/AMYLASE 36,000 UNIT CAPSULE PO SCH ×3 (10:16→17:17)
[2020-06-27] MEDS: METOPROLOL TARTRATE 25 MG TABLET (FP) PO SCH ×2 (10:17→21:17)
[2020-06-27] MEDS ORDERED: INSULIN (NOVOLOG) ASPART 100 UNITS/ML 10ML VIAL ONE ×3 (11:34→21:34)
[2020-06-27] MEDS: APIXABAN 5 MG TABLET PO SCH (21:19)
[2020-06-28] MEDS ORDERED: INSULIN (NOVOLOG) ASPART 100 UNITS/ML 10ML VIAL ONE (05:27)
[2020-06-28] MEDS: INSULIN SLIDING SCALE (NOVOLOG) 1 VIAL SQ SCH ×4 (06:18→22:17)
[2020-06-28] MEDS: FUROSEMIDE 40 MG/4 ML INJECTABLE VIAL IVPUSH SCH ×3 (06:19→14:26)
[2020-06-28] MEDS ORDERED: PT OWN MED DRAWER 7, Y5N ONE ×3 (08:25→17:04)
[2020-06-28] MEDS: LIPASE/PROTEASE/AMYLASE 36,000 UNIT CAPSULE PO SCH ×3 (08:33→17:04)
[2020-06-28 09:09] LABS: BASO % 0.8 % (0-2.0); EOS % 1.3 % (0-4.5); HEMATOCRIT 29.1 % (35.4-49); HEMOGLOBIN 9.6 GM/dL (11.7-16.9); LYMPH % 25.5 % (8-40); MCH 30.5 pg (25.7-33.7); MCHC 32.9 g/dl (32.0-35.9); MEAN CELL VOLUME 92.7 fl (80-96); MEAN PLT VOLUME 9.4 fl (7.5-11.1); MONO % 9.2 % (3.8-10.2); NEUT % 63.2 % (42.8-82.8); PLATELET COUNT 216 K/MM3 (134-434); RBC 3.14 M/mm3 (4.00-5.60); RDW 15.7 % (11.9-15.9); WHITE BLOOD COUNT 4.6 K/mm3 (4.0-10.0)
[2020-06-28 09:32] LABS: BLOOD UREA NITROGEN 37.3 mg/dL (7-18); CALCIUM 8.5 mg/dL (8.5-10.1)
[2020-06-28 09:35] LABS: BILIRUBIN,TOTAL 0.5 mg/dL (0.2-1); CREATININE 1.6 mg/dL (0.55-1.3)
[2020-06-28 09:36] LABS: TOT PROT 6.8 g/dl (6.4-8.2)
[2020-06-28] MEDS: METOPROLOL TARTRATE 25 MG TABLET (FP) PO SCH ×2 (09:46→21:49)
[2020-06-28] MEDS: APIXABAN 5 MG TABLET PO SCH ×2 (09:46→21:49)
[2020-06-28] MEDS ORDERED: TAMSULOSIN HCL 0.4 MG CAP PO SCH (15:15)
[2020-06-28] MEDS: TAMSULOSIN HCL 0.4 MG CAP PO SCH ×2 (15:40→21:49)
[2020-06-29] MEDS: FUROSEMIDE 40 MG/4 ML INJECTABLE VIAL IVPUSH SCH (06:14)
[2020-06-29] MEDS: INSULIN SLIDING SCALE (NOVOLOG) 1 VIAL SQ SCH ×4 (06:14→21:40)
[2020-06-29 09:45] LABS: BASO % 0.7 % (0-2.0); EOS % 1.7 % (0-4.5); HEMATOCRIT 28.7 % (35.4-49); HEMOGLOBIN 9.5 GM/dL (11.7-16.9); LYMPH % 22.9 % (8-40); MCH 30.7 pg (25.7-33.7); MCHC 33.1 g/dl (32.0-35.9); MEAN CELL VOLUME 92.6 fl (80-96); MEAN PLT VOLUME 9.1 fl (7.5-11.1); NEUT % 64.7 % (42.8-82.8); PLATELET COUNT 228 K/MM3 (134-434); RDW 15.4 % (11.9-15.9); WHITE BLOOD COUNT 4.8 K/mm3 (4.0-10.0)
[2020-06-29] MEDS: LIPASE/PROTEASE/AMYLASE 36,000 UNIT CAPSULE PO SCH ×3 (09:50→17:20)
[2020-06-29 10:13] LABS: CALCIUM 8.5 mg/dL (8.5-10.1)
[2020-06-29 10:14] LABS: BLOOD UREA NITROGEN 37.8 mg/dL (7-18)
[2020-06-29 10:17] LABS: CREATININE 1.8 mg/dL (0.55-1.3)
[2020-06-29] MEDS ORDERED: PT OWN MED DRAWER 7, Y5N ONE (10:31)
[2020-06-29] MEDS: METOPROLOL TARTRATE 25 MG TABLET (FP) PO SCH ×2 (10:51→21:36)
[2020-06-29] MEDS: APIXABAN 5 MG TABLET PO SCH ×2 (10:51→21:36)
[2020-06-29] MEDS: TAMSULOSIN HCL 0.4 MG CAP PO SCH ×2 (10:52→21:35)
[2020-06-30] MEDS: INSULIN SLIDING SCALE (NOVOLOG) 1 VIAL SQ SCH ×4 (06:17→21:09)
[2020-06-30] MEDS ORDERED: PT OWN MED DRAWER 7, Y5N ONE ×3 (08:52→16:29)
[2020-06-30] MEDS: LIPASE/PROTEASE/AMYLASE 36,000 UNIT CAPSULE PO SCH ×3 (08:53→17:16)
[2020-06-30] MEDS: TAMSULOSIN HCL 0.4 MG CAP PO SCH ×2 (08:53→20:08)
[2020-06-30 08:58] LABS: EOS % 1.3 % (0-4.5); HEMATOCRIT 27.9 % (35.4-49); LYMPH % 19.7 % (8-40); MCH 30.3 pg (25.7-33.7); MCHC 32.4 g/dl (32.0-35.9); MEAN CELL VOLUME 93.4 fl (80-96); MEAN PLT VOLUME 9.4 fl (7.5-11.1); MONO % 9.6 % (3.8-10.2); NEUT % 68.4 % (42.8-82.8); PLATELET COUNT 188 K/MM3 (134-434); RBC 2.99 M/mm3 (4.00-5.60); RDW 15.7 % (11.9-15.9); WHITE BLOOD COUNT 5.2 K/mm3 (4.0-10.0)
[2020-06-30] MEDS: FUROSEMIDE 40 MG/4 ML INJECTABLE VIAL IVPUSH SCH (09:23)
[2020-06-30] MEDS: APIXABAN 5 MG TABLET PO SCH (09:23)
[2020-06-30] MEDS: METOPROLOL TARTRATE 25 MG TABLET (FP) PO SCH ×2 (09:23→21:09)
[2020-06-30 09:24] LABS: ALBUMIN 3.1 g/dl (3.4-5.0)
[2020-06-30 09:25] LABS: BLOOD UREA NITROGEN 38.1 mg/dL (7-18); CALCIUM 8.2 mg/dL (8.5-10.1); MAGNESIUM 1.1 mg/dL (1.8-2.4)
[2020-06-30 09:27] LABS: CREATININE 1.5 mg/dL (0.55-1.3); PHOSPHOROUS 3.6 mg/dL (2.5-4.9)
[2020-06-30 09:29] LABS: BILIRUBIN,TOTAL 0.8 mg/dL (0.2-1); TOT PROT 6.6 g/dl (6.4-8.2)
[2020-06-30] MEDS ORDERED: FUROSEMIDE 40 MG/4 ML INJECTABLE VIAL IVPUSH ONE (14:54)
[2020-06-30] MEDS ORDERED: INSULIN (NOVOLOG) ASPART 100 UNITS/ML 10ML VIAL ONE ×2 (16:15→20:00)
[2020-07-01] MEDS: INSULIN SLIDING SCALE (NOVOLOG) 1 VIAL SQ SCH ×4 (06:20→21:09)
[2020-07-01] MEDS: LIPASE/PROTEASE/AMYLASE 36,000 UNIT CAPSULE PO SCH ×3 (08:17→17:16)
[2020-07-01] MEDS: TAMSULOSIN HCL 0.4 MG CAP PO SCH ×2 (08:17→21:07)
[2020-07-01] MEDS: FUROSEMIDE 40 MG/4 ML INJECTABLE VIAL IVPUSH SCH (09:01)
[2020-07-01] MEDS: METOPROLOL TARTRATE 25 MG TABLET (FP) PO SCH ×2 (09:02→21:07)
[2020-07-02] MEDS: INSULIN SLIDING SCALE (NOVOLOG) 1 VIAL SQ SCH ×3 (06:21→21:14)
[2020-07-02] MEDS: FUROSEMIDE 40 MG/4 ML INJECTABLE VIAL IVPUSH SCH (09:00)
[2020-07-02] MEDS: TAMSULOSIN HCL 0.4 MG CAP PO SCH ×2 (09:00→21:15)
[2020-07-02] MEDS: LIPASE/PROTEASE/AMYLASE 36,000 UNIT CAPSULE PO SCH ×3 (09:00→17:02)
[2020-07-02] MEDS: METOPROLOL TARTRATE 25 MG TABLET (FP) PO SCH ×2 (09:05→21:15)
[2020-07-03] MEDS: INSULIN SLIDING SCALE (NOVOLOG) 1 VIAL SQ SCH ×3 (06:32→16:43)
[2020-07-03] MEDS: LIPASE/PROTEASE/AMYLASE 36,000 UNIT CAPSULE PO SCH ×3 (08:29→17:19)
[2020-07-03] MEDS: TAMSULOSIN HCL 0.4 MG CAP PO SCH ×2 (08:29→10:44)
[2020-07-03 09:36] LABS: INR 1.3 (0.83-1.09); PROTHROMBIN TIME (PATIENT) 15.6 SEC (9.7-13.0)
[2020-07-03 09:46] LABS: BASO % 0.6 % (0-2.0); EOS % 1.5 % (0-4.5); HEMATOCRIT 28.7 % (35.4-49); HEMOGLOBIN 9.6 GM/dL (11.7-16.9); LYMPH % 20.8 % (8-40); MCH 30.9 pg (25.7-33.7); MCHC 33.4 g/dl (32.0-35.9); MEAN CELL VOLUME 92.6 fl (80-96); MEAN PLT VOLUME 9.7 fl (7.5-11.1); MONO % 9.9 % (3.8-10.2); NEUT % 67.2 % (42.8-82.8); PLATELET COUNT 196 K/MM3 (134-434); RDW 15.7 % (11.9-15.9); WHITE BLOOD COUNT 4.7 K/mm3 (4.0-10.0)
[2020-07-03 10:04] LABS: ALBUMIN 3.1 g/dl (3.4-5.0); CALCIUM 8.4 mg/dL (8.5-10.1)
[2020-07-03 10:05] LABS: BLOOD UREA NITROGEN 42.6 mg/dL (7-18)
[2020-07-03 10:08] LABS: BILIRUBIN,TOTAL 0.6 mg/dL (0.2-1); CREATININE 1.9 mg/dL (0.55-1.3); TOT PROT 6.8 g/dl (6.4-8.2)
[2020-07-03] MEDS: FUROSEMIDE 40 MG/4 ML INJECTABLE VIAL IVPUSH SCH (10:44)
[2020-07-03] MEDS: METOPROLOL TARTRATE 25 MG TABLET (FP) PO SCH (10:44)
[2020-07-03] MEDS ORDERED: ONDANSETRON 4 MG/2 ML VIAL IVPUSH PRN (16:39)
[2020-07-03] MEDS ORDERED: PROMETHAZINE HCL 25 MG/1 ML VIAL IVPUSH PRN (16:39)
[2020-07-03] MEDS ORDERED: MIDAZOLAM HCL 2 MG/2 ML SINGLE DOSE VIAL ONE (16:45)
[2020-07-03] MEDS ORDERED: ceFAZolin SODIUM 1 GM VIAL ONE (16:59)
[2020-07-03] MEDS ORDERED: SODIUM CHLORIDE 0.9% P/F 10 ML VIAL IJ ONE (16:59)
[2020-07-03] MEDS ORDERED: ceFAZolin SODIUM 1 GM VIAL IVPB ONE (17:00)
[2020-07-03] MEDS ORDERED: ePHEDrine SULFATE 50 MG/1 ML AMPULE ONE (17:03)
[2020-07-04] MEDS: LACTATED RINGERS SOLUTION 1,000 ML IV SCH ×3 (01:49→17:44)
[2020-07-04 08:47] LABS: BASO % 0.3 % (0-2.0); EOS % 0.8 % (0-4.5); HEMATOCRIT 28.2 % (35.4-49); HEMOGLOBIN 9.3 GM/dL (11.7-16.9); LYMPH % 9.5 % (8-40); MCH 30.7 pg (25.7-33.7); MCHC 32.9 g/dl (32.0-35.9); MEAN CELL VOLUME 93.2 fl (80-96); MEAN PLT VOLUME 9.8 fl (7.5-11.1); MONO % 6.8 % (3.8-10.2); NEUT % 82.6 % (42.8-82.8); PLATELET COUNT 195 K/MM3 (134-434); RBC 3.02 M/mm3 (4.00-5.60); RDW 15.7 % (11.9-15.9); WHITE BLOOD COUNT 6.3 K/mm3 (4.0-10.0)
[2020-07-04 09:16] LABS: CALCIUM 7.9 mg/dL (8.5-10.1)
[2020-07-04 09:17] LABS: BLOOD UREA NITROGEN 36.4 mg/dL (7-18)
[2020-07-04 09:20] LABS: CREATININE 1.6 mg/dL (0.55-1.3)
[2020-07-04 09:22] LABS: BILIRUBIN,TOTAL 0.6 mg/dL (0.2-1); TOT PROT 6.5 g/dl (6.4-8.2)
[2020-07-04] MEDS: INSULIN SLIDING SCALE (NOVOLOG) 1 VIAL SQ SCH ×3 (11:46→21:28)
[2020-07-04] MEDS: FUROSEMIDE 40 MG/4 ML INJECTABLE VIAL IVPUSH SCH (12:06)
[2020-07-04] MEDS: TAMSULOSIN HCL 0.4 MG CAP PO SCH (12:06)
[2020-07-04] MEDS: METOPROLOL TARTRATE 25 MG TABLET (FP) PO SCH ×2 (12:06→21:19)
[2020-07-04] MEDS: LIPASE/PROTEASE/AMYLASE 36,000 UNIT CAPSULE PO SCH ×2 (12:07→17:05)
[2020-07-04] MEDS: APIXABAN 2.5 MG TABLET PO SCH ×2 (12:09→21:19)
[2020-07-04] MEDS: guaiFENesin/D-M SUGAR-FREE/ACLHOL-FREE 118 ML BOTTLE PO PRN (12:19)
[2020-07-04] MEDS ORDERED: PT OWN MED DRAWER 7, Y5N ONE (20:07)
[2020-07-04] MEDS ORDERED: POTASSIUM CHLORIDE TABS 20 MEQ TABLET.ER (FP) PO ONE (21:40)
[2020-07-05] MEDS ORDERED: PT OWN MED DRAWER 7, Y5N ONE ×2 (00:53→08:28)
[2020-07-05] MEDS: guaiFENesin/D-M SUGAR-FREE/ACLHOL-FREE 118 ML BOTTLE PO PRN (00:56)
[2020-07-05] MEDS: INSULIN SLIDING SCALE (NOVOLOG) 1 VIAL SQ SCH ×4 (06:34→22:57)
[2020-07-05] MEDS: TAMSULOSIN HCL 0.4 MG CAP PO SCH (08:31)
[2020-07-05] MEDS: LIPASE/PROTEASE/AMYLASE 36,000 UNIT CAPSULE PO SCH ×3 (08:31→17:19)
[2020-07-05 09:08] LABS: BASO % 0.6 % (0-2.0); EOS % 0.6 % (0-4.5); HEMATOCRIT 29.3 % (35.4-49); HEMOGLOBIN 9.6 GM/dL (11.7-16.9); LYMPH % 10.4 % (8-40); MCH 30.5 pg (25.7-33.7); MCHC 32.6 g/dl (32.0-35.9); MEAN CELL VOLUME 93.4 fl (80-96); MEAN PLT VOLUME 9.9 fl (7.5-11.1); MONO % 9.9 % (3.8-10.2); NEUT % 78.5 % (42.8-82.8); PLATELET COUNT 185 K/MM3 (134-434); RBC 3.14 M/mm3 (4.00-5.60); RDW 16.1 % (11.9-15.9); WHITE BLOOD COUNT 6.7 K/mm3 (4.0-10.0)
[2020-07-05] MEDS: FUROSEMIDE 40 MG/4 ML INJECTABLE VIAL IVPUSH SCH (09:42)
[2020-07-05] MEDS: METOPROLOL TARTRATE 25 MG TABLET (FP) PO SCH ×2 (09:42→21:18)
[2020-07-05] MEDS: APIXABAN 2.5 MG TABLET PO SCH ×2 (09:42→21:18)
[2020-07-05 09:48] LABS: BLOOD UREA NITROGEN 28.2 mg/dL (7-18)
[2020-07-05 09:53] LABS: BILIRUBIN,TOTAL 0.8 mg/dL (0.2-1); CALCIUM 8.5 mg/dL (8.5-10.1); TOT PROT 6.9 g/dl (6.4-8.2)
[2020-07-05 10:03] LABS: CREATININE 1.5 mg/dL (0.55-1.3)
[2020-07-06] MEDS: INSULIN SLIDING SCALE (NOVOLOG) 1 VIAL SQ SCH ×4 (06:06→21:30)
[2020-07-06] MEDS ORDERED: PT OWN MED DRAWER 7, Y5N ONE (09:08)
[2020-07-06] MEDS: METOPROLOL TARTRATE 25 MG TABLET (FP) PO SCH ×2 (09:35→21:28)
[2020-07-06] MEDS: TAMSULOSIN HCL 0.4 MG CAP PO SCH (09:35)
[2020-07-06] MEDS: APIXABAN 2.5 MG TABLET PO SCH ×2 (09:35→21:28)
[2020-07-06] MEDS: LIPASE/PROTEASE/AMYLASE 36,000 UNIT CAPSULE PO SCH ×3 (09:36→17:12)
[2020-07-06 09:40] LABS: BASO % 0.4 % (0-2.0); EOS % 0.5 % (0-4.5); HEMATOCRIT 28.8 % (35.4-49); HEMOGLOBIN 9.5 GM/dL (11.7-16.9); LYMPH % 10.8 % (8-40); MCH 30.8 pg (25.7-33.7); MEAN CELL VOLUME 93.2 fl (80-96); MEAN PLT VOLUME 10.1 fl (7.5-11.1); MONO % 8.5 % (3.8-10.2); NEUT % 79.8 % (42.8-82.8); PLATELET COUNT 187 K/MM3 (134-434); RBC 3.09 M/mm3 (4.00-5.60); WHITE BLOOD COUNT 6.5 K/mm3 (4.0-10.0)
[2020-07-06 10:15] LABS: ALBUMIN 2.9 g/dl (3.4-5.0)
[2020-07-06 10:16] LABS: BLOOD UREA NITROGEN 31.2 mg/dL (7-18); CALCIUM 8.1 mg/dL (8.5-10.1)
[2020-07-06 10:19] LABS: CREATININE 1.5 mg/dL (0.55-1.3)
[2020-07-06 10:20] LABS: BILIRUBIN,TOTAL 1.1 mg/dL (0.2-1); TOT PROT 6.7 g/dl (6.4-8.2)
[2020-07-06] MEDS ORDERED: POTASSIUM CHLORIDE TABS 20 MEQ TABLET.ER (FP) PO ONE (21:56)
[2020-07-07] MEDS: INSULIN SLIDING SCALE (NOVOLOG) 1 VIAL SQ SCH ×4 (06:02→21:14)
[2020-07-07] MEDS ORDERED: PT OWN MED DRAWER 7, Y5N ONE (08:37)
[2020-07-07] MEDS: TAMSULOSIN HCL 0.4 MG CAP PO SCH (08:50)
[2020-07-07] MEDS: LIPASE/PROTEASE/AMYLASE 36,000 UNIT CAPSULE PO SCH ×3 (08:51→17:11)
[2020-07-07 09:16] LABS: BASO % 0.5 % (0-2.0); EOS % 0.9 % (0-4.5); HEMATOCRIT 28.7 % (35.4-49); HEMOGLOBIN 9.5 GM/dL (11.7-16.9); LYMPH % 12.7 % (8-40); MCH 30.5 pg (25.7-33.7); MCHC 32.9 g/dl (32.0-35.9); MEAN CELL VOLUME 92.8 fl (80-96); MEAN PLT VOLUME 10.3 fl (7.5-11.1); NEUT % 75.9 % (42.8-82.8); PLATELET COUNT 209 K/MM3 (134-434); RBC 3.09 M/mm3 (4.00-5.60); RDW 15.7 % (11.9-15.9); WHITE BLOOD COUNT 7.5 K/mm3 (4.0-10.0)
[2020-07-07 09:35] LABS: BLOOD UREA NITROGEN 34.4 mg/dL (7-18); CALCIUM 8.6 mg/dL (8.5-10.1)
[2020-07-07 09:38] LABS: CREATININE 1.6 mg/dL (0.55-1.3)
[2020-07-07 09:40] LABS: BILIRUBIN,TOTAL 0.8 mg/dL (0.2-1)
[2020-07-07] MEDS: METOPROLOL TARTRATE 25 MG TABLET (FP) PO SCH ×2 (11:06→21:14)
[2020-07-07] MEDS: APIXABAN 2.5 MG TABLET PO SCH ×2 (11:06→21:14)
[2020-07-07] MEDS ORDERED: POTASSIUM CHLORIDE TABS 20 MEQ TABLET.ER (FP) PO ONE (13:58)
[2020-07-08] MEDS: INSULIN SLIDING SCALE (NOVOLOG) 1 VIAL SQ SCH ×4 (07:02→22:02)
[2020-07-08] MEDS: TAMSULOSIN HCL 0.4 MG CAP PO SCH (08:27)
[2020-07-08] MEDS: LIPASE/PROTEASE/AMYLASE 36,000 UNIT CAPSULE PO SCH ×3 (08:51→17:31)
[2020-07-08] MEDS: APIXABAN 2.5 MG TABLET PO SCH ×2 (09:51→21:57)
[2020-07-08] MEDS: METOPROLOL TARTRATE 25 MG TABLET (FP) PO SCH ×2 (09:51→21:57)
[2020-07-08] MEDS ORDERED: TAMSULOSIN HCL 0.4 MG CAP PO ONE (10:30)
[2020-07-08] MEDS: FUROSEMIDE 40 MG/4 ML INJECTABLE VIAL IVPUSH SCH (16:24)
[2020-07-08] MEDS ORDERED: PT OWN MED DRAWER 7, Y5N ONE (18:49)
[2020-07-09] MEDS: INSULIN SLIDING SCALE (NOVOLOG) 1 VIAL SQ SCH ×2 (06:31→11:14)
[2020-07-09] MEDS ORDERED: TAMSULOSIN HCL 0.4 MG CAP PO SCH ×2 (08:30)
[2020-07-09] MEDS ORDERED: PT OWN MED DRAWER 7, Y5N ONE ×2 (08:55→12:31)
[2020-07-09] MEDS: METOPROLOL TARTRATE 25 MG TABLET (FP) PO SCH (09:05)
[2020-07-09] MEDS: FUROSEMIDE 40 MG/4 ML INJECTABLE VIAL IVPUSH SCH (09:05)
[2020-07-09] MEDS: APIXABAN 2.5 MG TABLET PO SCH (09:05)
[2020-07-09] MEDS: LIPASE/PROTEASE/AMYLASE 36,000 UNIT CAPSULE PO SCH ×2 (09:05→12:32)
[2020-07-09 10:14] LABS: BILIRUBIN,TOTAL 0.7 mg/dL (0.2-1)
[2020-07-09 10:17] LABS: BLOOD UREA NITROGEN 32.7 mg/dL (7-18); CALCIUM 8.4 mg/dL (8.5-10.1); CREATININE 1.4 mg/dL (0.55-1.3); TOT PROT 6.9 g/dl (6.4-8.2)
[2020-07-09] MEDS ORDERED: MAGNESIUM OXIDE 400 MG TABLET (FP) PO ONE (12:39)
[2020-07-09] MEDS ORDERED: MAGNESIUM SULF 50% (8.12 MEQ/2 ML-1 GM VIAL) IVPB ONE (12:39)
[2020-07-09] MEDS ORDERED: POTASSIUM CHLORIDE TABS 20 MEQ TABLET.ER (FP) PO ONE ×2 (12:39→13:37)
[2020-07-09 14:23] VITALS: BP 125/58; PULSE 89; TEMP 98.1
== END 2020-07-09 17:37 | disposition home or self-care (01) | DRG 988 ==
LOC: JER 16:48 → JERBED 18:57 → J6S 06-24 11:58
PROVIDERS: ADMIT Internal Medicine; ATTEND Internal Medicine
PROC: 0V508ZZ Destruction of Prostate, Via Natural or Artificial Opening Endoscopic (ICD-10-PCS; 2020-07-03)
PROC: 0VT08ZZ Resection of Prostate, Via Natural or Artificial Opening Endoscopic (ICD-10-PCS; principal; 2020-07-03 16:00)
DX: I11.0 Hypertensive heart disease with heart failure (principal); N17.9 Acute kidney failure, unspecified; N13.30 Unspecified hydronephrosis; I50.33 Acute on chronic diastolic (congestive) heart failure; E11.9 Type 2 diabetes mellitus without complications; I27.20 Pulmonary hypertension, unspecified; I48.91 Unspecified atrial fibrillation; N40.1 Benign prostatic hyperplasia with lower urinary tract symptoms; R33.8 Other retention of urine; I25.2 Old myocardial infarction; K21.9 Gastro-esophageal reflux disease without esophagitis; Z79.01 Long term (current) use of anticoagulants; J45.909 Unspecified asthma, uncomplicated; N32.89 Other specified disorders of bladder
CPT/HCPCS: 36415; 71045-TC-FY; 74176-TC; 76775-TC; 76856-TC; 80048; 80053; 82550; 82553; 82962; 83735; 83880; 84100; 84484; 85025; 85610; 85730; 88305-TC; 93005; 93010; 93306-TC; 94010; 94760; 99285-25; C9803; U0003; U0005